=== PATIENT | male | born 1970 | race Caucasian/White ===

== ENCOUNTER → 2021-10-01 | Outpatient (CLI) | payer OTHER, SELFPAY ==
[2021-10-01 09:19] LABS: ALB/GLOB Ratio 0.9 RATIO (0.9-2.4); AST(SGOT) 30 U/L (15-37); Alanine Aminotransfer ALT/SGPT 50 U/L (16-61); Albumin, Serum 3.7 g/dL (3.2-5.0); Alkaline Phosphatase 55 U/L (45-117); Anion Gap 9 (5-15); BUN 14 mg/dL (7-18); BUN/Creat Ratio 16.4 RATIO (10-20); Calcium,Total 8.8 mg/dL (8.5-10.1); Chloride 103 mmol/L (98-107); Cholesterol 222 mg/dL (200); Creatinine, Serum 0.85 mg/dL (0.70-1.30); EST Glomerular Filtration Rate 101 mL/min (>60); Est Glom Filt Rate - Afr Amer 122 mL/min (>60); Globulin 4.2 g/dL (2.2-4.2); Glucose 102 mg/dL (74-106); High Density Lipoprotein 33 mg/dL; PSA,Total - Annual Screen 0.98 ng/mL (0.00-4.00); Potassium 3.6 mmol/L (3.5-5.1); Protein, Total 7.9 g/dL (6.4-8.2); Sodium Level 137 mmol/L (136-145); Triglycerides 644 mg/dL
== END | disposition home or self-care (01) ==
LOC: LAB 07:27
PROVIDERS: PCP Family Medicine; Referring Provider Family Medicine; Visit Provider Family Medicine
DX: Z12.5 Encounter for screening for malignant neoplasm of prostate (principal); Z13.1 Encounter for screening for diabetes mellitus; E78.1 Pure hyperglyceridemia
CPT/HCPCS: 36415; 80053; 80061; 84153; G0103

== ENCOUNTER → 2021-11-05 | Outpatient (CLI) | payer OTHER, SELFPAY ==
[2021-11-05 07:57] LABS: Cholesterol 203 mg/dL (200); High Density Lipoprotein 28 mg/dL; Triglycerides 607 mg/dL
[2021-11-05 09:26] LABS: HIV - WCH Non-Reactive (Nonreactive); Hepatitis C Antibody Non-Reactive (Nonreactive)
== END | disposition home or self-care (01) ==
LOC: LAB 07:03
PROVIDERS: PCP Family Medicine; Referring Provider Family Medicine; Visit Provider Family Medicine
DX: Z11.59 Encounter for screening for other viral diseases (principal); Z11.4 Encounter for screening for human immunodeficiency virus [HIV]; E78.2 Mixed hyperlipidemia
CPT/HCPCS: 36415; 80061; 86703; 86803

== ENCOUNTER → 2022-04-30 | Outpatient (CLI) | payer OTHER, SELFPAY ==
[2022-04-30 08:16] LABS: ALB/GLOB Ratio 1.1 RATIO (0.9-2.4); AST(SGOT) 21 U/L (15-37); Alanine Aminotransfer ALT/SGPT 41 U/L (16-61); Alkaline Phosphatase 46 U/L (45-117); Anion Gap 5 (5-15); BUN 15 mg/dL (7-18); BUN/Creat Ratio 14.9 RATIO (10-20); Calcium,Total 9.1 mg/dL (8.5-10.1); Chloride 109 mmol/L (98-107); Cholesterol 152 mg/dL (200); Creatinine, Serum 1.01 mg/dL (0.70-1.30); EST Glomerular Filtration Rate 83 mL/min (>60); Est Glom Filt Rate - Afr Amer 100 mL/min (>60); Globulin 3.6 g/dL (2.2-4.2); Glucose 99 mg/dL (74-106); High Density Lipoprotein 35 mg/dL; Potassium 3.6 mmol/L (3.5-5.1); Protein, Total 7.6 g/dL (6.4-8.2); Sodium Level 140 mmol/L (136-145); Triglycerides 146 mg/dL; Very Low Density Lipoprotein 29 mg/dL (5-40)
== END | disposition home or self-care (01) ==
LOC: LAB 06:55
PROVIDERS: PCP Family Medicine; Referring Provider Family Medicine; Visit Provider Family Medicine
DX: I10 Essential (primary) hypertension (principal); E78.2 Mixed hyperlipidemia
CPT/HCPCS: 36415; 80053; 80061

== ENCOUNTER → 2022-10-29 | Outpatient (CLI) | payer OTHER, SELFPAY ==
[2022-10-29 07:56] LABS: Hematocrit 44.3 % (40-54); Mean Corp Hgb Conc 33.9 g/dL (32-36); Mean Corpuscular Hgb 30.3 pg (27.0-32.0); Mean Corpuscular Volume 89.5 fL (80-94); Mean Platelet Vol. 9.9 fl (6.2-12.0); Platelet Count 209 K/mm3 (150-450); RBC Distribution Width CV 12.8 % (11.6-14.6); RBC Distribution Width SD 41.7 fl (35.1-43.9); Red Blood Count 4.95 M/mm3 (4.6-6.2); White Blood Count 5.2 K/mm3 (4.4-11.0)
[2022-10-29 08:25] LABS: ALB/GLOB Ratio 1.1 RATIO (0.9-2.4); AST(SGOT) 22 U/L (15-37); Alanine Aminotransfer ALT/SGPT 39 U/L (16-61); Alkaline Phosphatase 45 U/L (45-117); Anion Gap 6 (5-15); BUN 14 mg/dL (7-18); BUN/Creat Ratio 13.5 RATIO (10-20); Calcium,Total 8.9 mg/dL (8.5-10.1); Chloride 106 mmol/L (98-107); Cholesterol 168 mg/dL (200); Creatinine, Serum 1.04 mg/dL (0.70-1.30); EST Glomerular Filtration Rate 80 mL/min (>60); Est Glom Filt Rate - Afr Amer 97 mL/min (>60); Globulin 3.7 g/dL (2.2-4.2); Glucose 97 mg/dL (74-106); High Density Lipoprotein 31 mg/dL; PSA,Total - Annual Screen 1.29 ng/mL (0.00-4.00); Potassium 3.5 mmol/L (3.5-5.1); Protein, Total 7.7 g/dL (6.4-8.2); Sodium Level 136 mmol/L (136-145); Triglycerides 349 mg/dL; Very Low Density Lipoprotein 70 mg/dL (5-40)
== END | disposition home or self-care (01) ==
PROVIDERS: PCP Family Medicine; Referring Provider Family Medicine; Visit Provider Family Medicine
DX: Z13.1 Encounter for screening for diabetes mellitus (principal); Z13.0 Encounter for screening for diseases of the blood and blood-forming organs and certain disorders involving the immune mechanism; Z12.5 Encounter for screening for malignant neoplasm of prostate; E78.2 Mixed hyperlipidemia
CPT/HCPCS: 36415; 80053; 80061; 84153; 85027; G0103

== ENCOUNTER → 2023-04-24 | Outpatient (CLI) | payer OTHER, SELFPAY ==
--- OUTSIDE RECORDS SUMMARY | 2023-04-24 07:08 | XMS RPT_ITS | CCD ---
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 0 Active fenofibrate 145 mg oral tablet (3 sources) Peroxisome Proliferator Receptor alpha Agonist Start: 06-24-2022 End: 10-29-2022 take 1 tablet by mouth once daily fenofibrate (Tricor) 145 MG tablet Take 1 tablet (145 mg) by mouth daily. 90 tablet 1 10/30/2022 Active garlic preparation 100 mg oral tablet (2 sources) Non-Standardized Food Allergenic Extract take 1 tablet by mouth once daily Garlic 100 MG tablet Take 1 tablet by mouth daily. 0 Active Multiple Vitamin (MULTIVITAMIN ADULT PO) (2 sources) take 1 tablet by mouth once daily Multiple Vitamin (MULTIVITAMIN ADULT PO) Take 1 tablet by mouth daily. 0 Active Problems Active Problems Problem Classification Problem Date Documented Da te Episodic/Chronic Disorders of lipid metabolism (6 sources) Mixed hyperlipidemia; Translations: [Mixed hyperlipidemia] Onset: 10-04-2021 10-30-2022 Chronic Essential hypertension (5 sources) Essential hypertension; Translations: [Essential (primary) hypertension] Onset: 11-07-2021 10-30-2022 Chronic Other nutritional; endocrine; and metabolic disorders (3 sources) Severe obesity; Translations: [Morbid (severe) obesity due to excess calories] Onset: 10-04-2021 10-30-2022 Chronic Other nutritional; endocrine; and metabolic disorders (2 sources) Morbid (severe) obesity due to excess calories; Translations: [Morbid (severe) obesity due to excess calories (HCC)] Onset: 01-19-2022 Chronic Residual codes; unclassified (3 sources) Obstructive sleep apnea syndrome; Translations: [Obstructive sleep apnea (adult) (pediatric)] Onset: 10-04-2021 10-30-2022 Chronic Residual codes; unclassified (2 sources) Obstructive sleep apnea (adult) (pediatric); Translations: [Obstructive sleep apnea (adult) (pediatric)] Onset: 01-19-2022 Chronic Residual codes; unclassified (2 sources) Dependence on other enabling machines and devices; Translations: [Dependence on other enabling machines and devices] Onset: 01-19-2022 Chronic Unclassified (2 sources) Blood Pressure Check; Translations: [Blood Pressure Check] Onset: 11-07-2022 Past or Other Problems Problem Classification Problem Date Documented Da te Episodic/Chronic Other male genital disorders (2 sources) Swelling of scrotum ; Translations: [Other specified disorders of the male genital organs] Onset: 08-19-2017 01-19-2022 Episodic Results Test Name Value Interpretation Reference Range Facil ity Vital Signs Date Time Vital Sign Value Performing Clinician Alex freeman 10-30-2022 08:49-0400 Diastolic blood pressure 94 mm[Hg] Roman Bone MD Work Phone: [employer] 10-30-2022 08:49-0400 Heart rate 69 /min Roman Bone MD Work Phone: [employer] 10-30-2022 08:49-0400 Systolic blood pressure 158 mm[Hg] Roman Bone MD Work Phone: [employer] 10-30-2022 08:22-0400 Body height 167.9 cm Roman Bone MD Work Phone: [employer] 10-30-2022 08:22-0400 Body mass index (BMI) [Ratio] 36.95 kg/m2 Roman Bone MD Work Phone: [facility] 10-30-2022 08:22-0400 Body weight 104.15 kg Roman Bone MD Work Phone: [facility] 10-30-2022 08:22-0400 SaO2% (BldA) [Mass fraction] 96 % Roman Bone MD Work Phone: [facility] Encounters Encounter Date Encounter Type Care Provider Facility Start: 04-21-2023 Telephone encounter Roman Teran MD Work Phone: [facility] Procedures Date Procedure Procedure Detail Performing Clinician Start: 10-31-2022 Lipid 1996 panel - S hiren or Plasma Roman Bone MD Work Phone: Start: 10-29-2022 Adult depression screening assessment Roman Bone MD Work Phone: Start: 04-30-2022 Lipid 1996 panel - S hiren or Plasma Roman Bone MD Work Phone: Plan of Treatment Date Care Activity Detail Author Start: 02-05-2032 Screening for malignant neoplasm of colon [facility] Start: 2031 RSV Immunization aged 60 or older (1 - 1-dose 60+ series) RSV Immunization aged 60 or older (1 - 1-dose 60+ series) [facility] Start: 11-01-2027 Lipid panel Lipid Panel [facility] Start: 04-30-2027 Lipid panel Lipid Panel [facility] Start: 10-30-2023 Depression Screening Depression Screening [facility] Start: 04-28-2023 End: 04-28-2023 Patient encounter procedure 04/28/2023 7:00 AM EST Office Visit [facility] [address] [place], [place] [id number] Roman Bone MD [address] [place] [address] [facility] Start: 04-21-2023 End: 04-21-2024 Alanine aminotransferase [Enzymatic activity/volume] in Serum or Plasma ALT Lab Routine Mixed hyperlipidemia Expected: 04/21/2023 (Approximate), Expires: 04/21/2024 [facility] Work Phone: Immunizations Immunization Date Immunization Notes Care Provider Cristian archibald 01-16-2012 diphtheria and tetan us toxoids, adsorbed for pediatric use Roman Bone MD Work Phone: [facility] Payers Date Payer Category Payer Private Health Insurance [employer] ETNA PPO [id number] 2022-Present [address] [place] [address] Commercial [id number] 2022 Private Health Insurance [id number] Social History Date Type Detail Facility Tobacco smoking status NHIS Never smoked tobacco [facility] Start: 10-30-2022 Alcohol intake Current drinke r of alcohol (finding) [facility] Start: 10-29-2022 End: 10-30-2022 History of Social function [facility] Start: 10-29-2022 End: 10-30-2022 Alcohol Use Disorder Identification Test - Consumption [AUDIT-C] [facility] How often to you hav e a drink containing alcohol? 2-4 times a month [facility] How many standard dr inks containing alcohol do you have on a typical day? 5 or 6 [facility] How often do you hav e 6 or more drinks on 1 occasion? Less than monthly [facility] How hard is it for y ou to pay for the very basics like food, housing, medical care, and heating Not hard at all [facility] (I/We) worried tomeka er (my/our) food would run out before (I/we) got money to buy more. Never true [facility] In the past 12 month s, was there a time when you were not able to pay the mortgage or rent on time? No [facility] Start: 10-29-2022 Alcohol Comment 5-6 drinks on a day on the weekend [facility] Start: 1970 Sex Assigned At Not on file [facility] Start: 10-20-2022 End: 10-30-2022 Exposure to SARS-CoV-2 (event) Not sure [facility] Clinical Notes 10-30-2022 to 04-21-2023 Telephone Encounter - Tiara Celeste MA - 04/21/2023 12:48 PM ESTTelephone Encounter - Tiara Celeste MA - 04/21/2023 12:48 PM ESTTelephone Encounter - Roman Bone MD - 04/21/2023 12:41 PM EST Note Date & Type Note Facility 04-21-2023 Telephone encounter Note Form atting of this note might be different from the original. Notified. [facility] 04-21-2023 Miscellaneous Notes Formattin g of this note might be different from the original. Notified. His cholesterol does need rechecked his triglycerides continue to be high, he can have that done prior to his visit if he would like. Order entered Name of caller: Bhavesh Contact phone number: [phone] Relationship to Patient: patient Provider: Dr Bone Practice: [facility] Chief Complaint/Reason for Call: Patient states he has an upcoming appointment on 04/28/23 and would like to know if he should have any lab work done before the appointment. Patient is requesting a callback regarding this matter. Please advise, thank you Best time of day caller can be reached: any Patient advised that office/PCP has 24-48 business hours to return their call: Yes documented in this encounter [facility] 04-21-2023 Telephone encounter Note Form atting of this note might be different from the original. His cholesterol does need rechecked his triglycerides continue to be high, he can have that done prior to his visit if he would like. Order entered [facility] 04-21-2023 Telephone encounter Note Form atting of this note might be different from the original. Name of caller: Bhavesh Contact phone number: [phone] Relationship to Patient: patient Provider: Dr Bone Practice: [facility] Chief Complaint/Reason for Call: Patient states he has an upcoming appointment on 04/28/23 and would like to know if he should have any lab work done before the appointment. Patient is requesting a callback regarding this matter. Please advise, thank you Best time of day caller can be reached: any Patient advised that office/PCP has 24-48 business hours to return their call: Yes [employer] 10-30-2022 Evaluation + Plan note Associ ated Problem(s): Mixed hyperlipidemia Cholesterol is controlled, triglycerides are elevated discussed reducing his omega-3 fish oil to at least 4 g a day continue fenofibrate 145 mg daily [facility] 10-30-2022 Miscellaneous Notes Associate d Problem(s): Mixed hyperlipidemia Cholesterol is controlled, triglycerides are elevated discussed reducing his omega-3 fish oil to at least 4 g a day continue fenofibrate 145 mg daily Associated Problem(s): Severe obesity (BMI 35.0-39.9) with comorbidity (HCC) Weight is increased, discussed diet and exercise for weight loss. Associated Problem(s): Primary hypertension Blood pressure was initially elevated, recheck was still high we will have him follow-up in 1 week for blood pressure check may need to start medications. Associated Problem(s): EDGAR on CPAP Stable, continue CPAP at current settings documented in this encounter [facility] 10-30-2022 Evaluation + Plan note Associ ated Problem(s): Severe obesity (BMI 35.0-39.9) with comorbidity (HCC) Weight is increased, discussed diet and exercise for weight loss. [facility] 10-30-2022 Evaluation + Plan note Associ ated Problem(s): Primary hypertension Blood pressure was initially elevated, recheck was still high we will have him follow-up in 1 week for blood pressure check may need to start medications. [facility] 10-30-2022 Evaluation + Plan note Associ ated Problem(s): EDGAR on CPAP Stable, continue CPAP at current settings [facility] 10-30-2022 History of Presen t illness Narrative Health Maintenance/pend orders Allergies Meds-pharmacy Medical hx Surgical hx Family hx Tobacco use E-Cigarette/vaping use Alcohol use Drug use Sexual activity PHQ2/9 Social Determinants Pend any medication refills needed-need fenofibrate refilled All of the above have been reviewed/completed Patient verified by last name and date of . Images from the original note were not included. 10/30/2022 Bhavesh Galindo (: 1970) is a 52 y.o. male , Established patient, here for evaluation of the following chief complaint(s): Annual Exam, Blood Work, and Health Maintenance (DM screening-agreed but already had labs done at [facility], had Dr. Bone put in orders ahead of visit/IZABELLAID vaccine-none/TDAP-declines/Shingrix- declines/Hep B vaccine-declines) ASSESSMENT/PLAN: 1. Annual physical exam 2. EDGAR on CPAP Assessment & Plan: Stable, continue CPAP at current settings 3. Primary hypertension Assessment & Plan: Blood pressure was initially elevated, recheck was still high we will have him follow-up in 1 week for blood pressure check may need to start medications. 4. Severe obesity (BMI 35.0-39.9) with comorbidity (HCC) Assessment & Plan: Weight is increased, discussed diet and exercise for weight loss. 5. Mixed hyperlipidemia Assessment & Plan: Cholesterol is controlled, triglycerides are elevated discussed reducing his omega-3 fish oil to at least 4 g a day continue fenofibrate 145 mg daily Follow up in about 6 months (around 05/02/2023). SUBJECTIVE/OBJECTIVE: EMIL Swift comes in today for his annual exam, he is also here for follow-up on his EDGAR, hypertension obesity and hyperlipidemia. Blood pressure is slightly elevated today we will recheck that prior to discharge. He says he wears his CPAP every night for approximately 7 hours. He does feel like he is continuing to get benefit. Review of Systems Constitutional: Negative for activity change, appetite change, chills, fever and unexpected weight change. HENT: Negative for ear pain and sore throat. Respiratory: Negative for shortness of breath. Cardiovascular: Negative for chest pain and palpitations. Gastrointestinal: Negative for abdominal pain, blood in stool, constipation and diarrhea. Genitourinary: Negative for dysuria, frequency, hematuria and urgency. Musculoskeletal: Negative for arthralgias and back pain. Skin: Negative. Neurological: Negative for weakness and numbness. Psychiatric/Behavioral: Negative for dysphoric mood. The patient is not nervous/anxious. Vitals: 10/30/22 0822 10/30/22 0849 BP: (!) 159/84 (!) 158/94 Pulse: 74 69 SpO2: 96% Weight: 229 lb 9.6 oz (104 kg) Height: 5' 6.1 (1.679 m) Physical Exam Vitals and nursing note reviewed. Constitutional: General: He is not in acute distress. Appearance: Normal appearance. He is obese. HENT: Right Ear: Tympanic membrane, ear canal and external ear normal. Left Ear: Tympanic membrane, ear canal and external ear normal. Mouth/Throat: Mouth: Mucous membranes are moist. Pharynx: Oropharynx is clear. Eyes: Extraocular Movements: Extraocular movements intact. Pupils: Pupils are equal, round, and reactive to light. Neck: Vascular: No carotid bruit. Cardiovascular: Rate and Rhythm: Normal rate and regular rhythm. Heart sounds: Normal heart sounds. No murmur heard. Pulmonary: Effort: Pulmonary effort is normal. Breath sounds: Normal breath sounds. Abdominal: General: Bowel sounds are normal. Palpations: Abdomen is soft. Tenderness: There is no abdominal tenderness. Musculoskeletal: General: Normal range of motion. Cervical back: Neck supple. Lymphadenopathy: Cervical: No cervical adenopathy. Skin: General: Skin is warm and dry. Neurological: General: No focal deficit present. Mental Status: He is alert and oriented to person, place, and time. Psychiatric: Mood and Affect: Mood normal. An electronic signature was used to authenticate this note. Roman Bone MD 10/30/2022 11:31 AM documented in this encounter [facility] Mixed hyperlipidemia- Primary documented in this encounter [facility] Summary Purpose Family History No Family History Records Found Advance Directives No Advanced Directives Records Found Additional Source Comments Reason for Visit (unrecogniz ed section and content) Reason Onset Date Comments Request For Order(s) 04/21/2023 Care Teams (unrecognized sec tion and content) Coring Machine Operator Relationship Specialty Start Date End Date Roman Bone MD [address] [place] [address], [address] [place], [place] [id number] PCP - General 10/04/21 (unrecognized sect ion and content) No Status Records Found INFORMATION SOURCE (unrecogn ized section and content) FOR RECORDS PERTAINING TO PATIENTS WHO ARE OR HAVE BEEN ENROLLED IN A CHEMICAL DEPENDENCY/SUBSTANCEABUSE PROGRAM, SOME INFORMATION MAY BE OMITTED. This clinical summary was aggregated from multiple sources. Caution should be exercised in using it in the provision of clinical care. This summary normalizes information from multiple sources, and as a consequence, information in this document may materially change the coding, format and clinical context of patient data. In addition, data may be omitted in some cases. CLINICAL DECISIONS SHOULD BE BASED ON THE PRIMARY CLINICAL RECORDS. [employer] [facility]. provides no warranty or guarantee of the accuracy or completeness of information in this document.
[2023-04-24 09:21] LABS: AST(SGOT) 22 U/L (15-37); Alanine Aminotransfer ALT/SGPT 38 U/L (16-61); Cholesterol 182 mg/dL (200); High Density Lipoprotein 32 mg/dL; Triglycerides 125 mg/dL; Very Low Density Lipoprotein 25 mg/dL (5-40)
== END | disposition home or self-care (01) ==
LOC: LAB 07:06
PROVIDERS: PCP Family Medicine; Visit Provider Family Medicine
DX: E78.2 Mixed hyperlipidemia (principal)
CPT/HCPCS: 36415; 80061; 84450; 84460

== ENCOUNTER → 2023-11-13 | Outpatient (CLI) | payer OTHER, SELFPAY ==
[2023-11-13 07:40] LABS: Cholesterol 166 mg/dL (200); High Density Lipoprotein 34 mg/dL; Triglycerides 121 mg/dL; Very Low Density Lipoprotein 24 mg/dL (5-40)
== END | disposition home or self-care (01) ==
LOC: LAB 06:54
PROVIDERS: PCP Family Medicine; Referring Provider Family Medicine; Visit Provider Family Medicine
DX: E78.2 Mixed hyperlipidemia (principal)
CPT/HCPCS: 36415; 80061

== ENCOUNTER → 2023-11-21 | Outpatient (CLI) | payer OTHER, SELFPAY ==
[2023-11-21 08:02] LABS: ALB/GLOB Ratio 1.1 RATIO (0.9-2.4); AST(SGOT) 19 U/L (15-37); Alanine Aminotransfer ALT/SGPT 31 U/L (16-61); Alkaline Phosphatase 45 U/L (45-117); Anion Gap 6 (5-15); BUN 14 mg/dL (7-18); BUN/Creat Ratio 13.9 RATIO (10-20); Calcium,Total 8.9 mg/dL (8.5-10.1); Chloride 107 mmol/L (98-107); Creatinine, Serum 1.01 mg/dL (0.70-1.30); EST Glomerular Filtration Rate 82 mL/min (>60); Est Glom Filt Rate - Afr Amer 100 mL/min (>60); Globulin 3.7 g/dL (2.2-4.2); Glucose 98 mg/dL (74-106); PSA,Total- Diagnostic 1.32 ng/mL (0.0-4.0); Potassium 3.7 mmol/L (3.5-5.1); Protein, Total 7.7 g/dL (6.4-8.2); Sodium Level 139 mmol/L (136-145)
== END | disposition home or self-care (01) ==
LOC: LAB 06:54
PROVIDERS: PCP Family Medicine; Referring Provider Family Medicine; Visit Provider Family Medicine
DX: I10 Essential (primary) hypertension (principal); Z12.5 Encounter for screening for malignant neoplasm of prostate
CPT/HCPCS: 36415; 80053; 84153

== ENCOUNTER → 2024-05-26 | Outpatient (CLI) | payer OTHER, SELFPAY ==
[2024-05-26 08:33] LABS: ALB/GLOB Ratio 1.1 RATIO (0.9-2.4); AST(SGOT) 28 U/L (15-37); Alanine Aminotransfer ALT/SGPT 39 U/L (16-61); Alkaline Phosphatase 48 U/L (45-117); Anion Gap 5 (5-15); BUN 17 mg/dL (7-18); Calcium,Total 9.1 mg/dL (8.5-10.1); Chloride 106 mmol/L (98-107); Cholesterol 174 mg/dL (200); Creatinine, Serum 0.95 mg/dL (0.70-1.30); EST Glomerular Filtration Rate 88 mL/min (>60); Est Glom Filt Rate - Afr Amer 107 mL/min (>60); Globulin 3.8 g/dL (2.2-4.2); Glucose 100 mg/dL (74-106); High Density Lipoprotein 38 mg/dL; PSA,Total - Annual Screen 0.97 ng/mL (0.00-4.00); Potassium 3.8 mmol/L (3.5-5.1); Protein, Total 7.8 g/dL (6.4-8.2); Sodium Level 138 mmol/L (136-145); Triglycerides 176 mg/dL; Very Low Density Lipoprotein 35 mg/dL (5-40)
== END | disposition home or self-care (01) ==
LOC: LAB 06:50
PROVIDERS: PCP Family Medicine; Referring Provider Nurse Practitioner Family; Visit Provider Nurse Practitioner Family
DX: E78.2 Mixed hyperlipidemia (principal); I10 Essential (primary) hypertension; Z12.5 Encounter for screening for malignant neoplasm of prostate
CPT/HCPCS: 36415; 80053; 80061; 84153; G0103

== ENCOUNTER → 2024-11-18 | Outpatient (CLI) | payer OTHER, SELFPAY ==
--- OUTSIDE RECORDS SUMMARY | 2024-11-18 06:48 | XMS RPT_ITS | CCD ---
Author Organization [facility] Care Team Providers Care Motorcycle Maker Name Role Phone Jeferson Worrell MD Primary Care Provider Jeferson Worrell Referring Unavailable Jeferson Worrell Attending Unavailable Jeferson Worrell Primary Care Unavailable Jeferson Worrell Primary Care Unavailable Jeferson Worrell Referring Unavailable Jeferson Worrell Attending Unavailable Jeferson Worrell Primary Care Unavailable Bridenthal, Marleen Referring Unavailable Bridenthal Marleen Attending Unavailable JEFERSON WORRELL Attending Unavailable JEFERSON WORRELL Primary Care Unavailable JEFERSON WORRELL Primary Care Unavailable JEFERSON WORRELL Attending Unavailable JEFERSON WORRELL Primary Care Unavailable Medications Current Medications Medication Drug Class(es) Dates Sig (Normalized) Sig (Original) docosahexaenoic acid 120 mg / eicosapentaenoic acid 180 mg oral capsule (15 sources) take 1 capsule by mouth once daily omega-3 (Fish Oil) 1000 MG capsule Take 1,000 mg by mouth daily. Active fenofibrate 145 mg oral tablet (19 sources) Peroxisome Proliferator Receptor alpha Agonist Start: 03-19-2022 End: 11-15-2024 take 1 tablet by mouth once daily fenofibrate (Tricor) 145 MG tablet Take 1 tablet (145 mg) by mouth daily. 90 tablet 1 11/15/2024 Active garlic preparation 100 mg oral tablet (15 sources) Non-Standardized Food Allergenic Extract take 1 tablet by mouth once daily Garlic 100 MG tablet Take 1 tablet by mouth daily. Active take 1 tablet by mouth once beckie y Garlic 100 MG tablet Take 1 tablet by mouth daily. 0 Active Multiple Vitamin (MULTIVITAM IN ADULT PO) (15 sources) take 1 tablet by eulalia th once daily Multiple Vitamin (MULTIVITAMIN ADULT PO) Take 1 tablet by mouth daily. Active take 1 tablet by mouth once beckie y Multiple Vitamin (MULTIVITAMIN ADULT PO) Take 1 tablet by mouth daily. 0 Active rosuvastatin calcium 5 mg oral tablet (4 sources) HMG-CoA Reductase Inhibitor Start: 06-01-2024 End: 11-15-2024 take 1 tablet by mouth once daily rosuvastatin (Crestor) 5 MG tablet Take 1 tablet (5 mg) by mouth daily. 90 tablet 1 11/15/2024 Active Completed/Discontinued Medications Medication Drug Class(es) Dates Sig (Normalized) Sig (Original) icosapent ethyl 1000 mg oral capsule (1 source) Start: 10-12-2021 End: 05-08-2022 Icosapent Ethyl (Vascepa) 1 g capsule Take 2 capsules by mouth 2 times daily. 0 10/12/2021 05/08/2022 Discontinued (Med list cleanup) Problems Active Problems Problem Classification Problem Date Documented Da te Episodic/Chronic Disorders of lipid metabolism (20 sources) Mixed hyperlipidemia; Translations: [Mixed hyperlipidemia] Onset: 10-04-2021 10-30-2022 Chronic Essential hypertension (20 sources) Essential hypertension; Translations: [Essential (primary) hypertension] Onset: 11-07-2021 10-30-2022 Chronic Other nutritional; endocrine; and metabolic disorders (20 sources) Severe obesity; Translations: [Morbid (severe) obesity due to excess calories] Onset: 10-04-2021 10-30-2022 Chronic Other nutritional; endocrine; and metabolic disorders (2 sources) Morbid (severe) obesity due to excess calories; Translations: [Morbid (severe) obesity due to excess calories (HCC)] Onset: 01-19-2022 Chronic Residual codes; unclassified (20 sources) Obstructive sleep apnea syndrome; Translations: [Obstructive sleep apnea (adult) (pediatric)] Onset: 10-04-2021 10-30-2022 Chronic Residual codes; unclassified (2 sources) Obstructive sleep apnea (adult) (pediatric); Translations: [Obstructive sleep apnea (adult) (pediatric)] Onset: 01-19-2022 Chronic Residual codes; unclassified (1 source) Influenza vaccination declined; Translations: [Immunization not carried out because of patient refusal] 05-28-2024 Episodic Unclassified (2 sources) Blood Pressure Check; Translations: [Blood Pressure Check] Onset: 06-08-2024 Past or Other Problems Problem Classification Problem Date Documented Da te Episodic/Chronic Other male genital disorders (15 sources) Swelling of scrotum ; Translations: [Other specified disorders of the male genital organs] Onset: 08-19-2017 Resolved: 11-18-2023 01-19-2022 Episodic Other screening for suspected conditions (not mental disorders or infectious disease) (6 sources) Patient encounter status; Translations: [Encounter for screening for diabetes mellitus] Onset: 11-18-2023 11-18-2023 Episodic Residual codes; unclassified (2 sources) Immunization not carried out because of patient refusal; Translations: [Immunization not carried out because of patient refusal] Onset: 06-01-2024 Episodic Results Test Name Value Interpretation Reference Range Facil ity 36on 11-15-2024 36 Printed orders for patient, called patient to let him know they are ready to product picker [place] [id number] Yes the active orders [place] [id number] Rx sent. Follow up a s scheduled. Normal [place] [id number] Theres active orders in his chart, is that what you would like him to complete? [place] [id number] Ordering provider: Doreen Worrell Date of last office visit: 06/01/24 Date of next office visit: 11/24/24 Updated/Validated preferred pharmacy: Yes Patient instructed to contact the pharmacy prior to picking up the medication: Yes (1) Medication name: fenofibrate (Tricor) Medication dosage: 145mg Monthly quantity needed: 30 How many day supply requestin days Medication route: oral (PO) Medication administration time(s): daily If taking medication PRN, reason for taking medication: N/A If this is a controlled substance do you receive this or any other controlled medication from any other doctor or facility: N/A Date of last refill (see medication tab): 06/29/24 2ion name: rosuvastatin (Crestor) Medication dosage: 5mg Monthly quantity needed: 30 How many day supply requestin days Medication route: oral (PO) Medication administration time(s): daily If taking medication PRN, reason for taking medication: N/A If this is a controlled substance do you receive this or any other controlled medication from any other doctor or facility: N/A Date of last refill (see medication tab): 06/01/24 [place] [id number] Name of caller: Bhavesh Contact phone number: [phone] Relationship to Patient: patient Provider: Dr Worrell Practice: [facility] Chief Complaint/Reason for Call: Patient is requesting lab orders so that he can get them done prior to his visit. He would like to product picker hard copies. Please call when ready. Best time of day caller can be reached: any Patient advised that office/PCP has 24-48 business hours to return their call: Yes [facility] 36on 06-29-2024 36 Medication name: fenofibrate (Tricor) 145 MG tablet Medication dosage: 145 mg (Miligrams Monthly quantity needed: 90 How many day supply requestin Medication route: oral (PO) Medication administration time(s): daily If taking medication PRN, reason for taking medication: N/A If this is a controlled substance do you receive this or any other controlled medication from any other doctor or facility: N/A Ordering provider: Jeferson Worrell MD Date of last office visit: 06/01/24 Date of next office visit: 11/24/24 Date of last refill: (see medication tab): 11/18/23 Updated/Validated preferred pharmacy: Yes [facility] [address] [facility] [address] [facility] [address] Patient instructed to contact the pharmacy prior to picking up the medication: Yes [place] [id number] 06-08-2024 36 Notified, no further questions [facility] 36 Blood pressure is okay continue low-sodium diet. Normal [facility] 36 Bhavesh came in today for a blood pressure check and his readings were 146/74 pulse 76 and 122/74 pulse 73. Please advise, thank you! Patient arrived for nurse visit today and was verified by name and . Supervising provider for clinic visit Dr. Worrell is currently not taking any anti- hypertensive medications Shortness of breath no Medication compliance yes Medication Reconciliation yes B/P Reading taken automatic Home Monitoring yes Patient advised if follow up is needed, outreach will occur in 48 hours [facility] Progress Noteon 06-08-2024 Progress Note [address] [place] [address] [address] Patient arrived for nurse visit today and was verified by name and . Supervising provider for clinic visit Dr. Worrell is currently not taking any anti- hypertensive medications Shortness of breath no Medication compliance yes Medication Reconciliation yes B/P Reading taken automatic Home Monitoring yes Patient advised if follow up is needed, outreach will occur in 48 hours [facility] Office Visiton 06-01-2024 Follow-up visit [id number] Bhavesh Galindo 1970 M Date Provider Department Center 06/01/2024 [id number] WORRELL [facility] Family History Problem Relation Age of Onset Heart attack Father Cancer Father Comments: bladder Family Status - Relation Status Age at Father Mother Alive Level of Service:81023 ID OFFICE/OUTPATIENT ESTABLISHED MOD MDM 30 MIN Reason for Visit and Comments: Hyperlipidemia [182] Hypertension [732417] Sleep Apnea [348] Medication Check [5183782249] - 6 month Health Maintenance [872] - Pt refused- pcv 20 and flu vaccines Pt has not had any covid vaccines Normal [facility] Progress Noteon 06-01-2024 Progress Note Blood pressure was slightly elevated today recheck was still borderline high, follow-up in 1 week for blood pressure check currently on no medications. Very strict low-sodium diet less than 2 g a day. Normal [facility] Progress Note Uncontrolled, cholesterol total is good, bad continues to be borderline high and good is borderline low we will have him continue his fenofibrate at current dose and will add low-dose rosuvastatin 5 mg and have him get repeat lab work in 4 weeks. Normal [facility] Progress Note Stable, encourage weight loss with diet and exercise Normal [facility] Progress Note Stable, continue CPA P at current settings. Normal [facility] Progress Note 06/01/2024 Bhavesh Galindo (: 1970) is a 54 y.o. male , Established patient, here for evaluation of the following chief complaint(s): Hyperlipidemia, Hypertension, Sleep Apnea, Medication Check (6 month), and Health Maintenance (Pt refused- pcv 20 and flu vaccines/Pt has not had any covid vaccines) ASSESSMENT/PLAN: 1. Mixed hyperlipidemia Assessment & Plan: Uncontrolled, cholesterol total is good, bad continues to be borderline high and good is borderline low we will have him continue his fenofibrate at current dose and will add low-dose rosuvastatin 5 mg and have him get repeat lab work in 4 weeks. Orders: - ALT - AST - Lipid panel 2. Primary hypertension Assessment & Plan: Blood pressure was slightly elevated today recheck was still borderline high, follow-up in 1 week for blood pressure check currently on no medications. Very strict low-sodium diet less than 2 g a day. 3. Severe obesity (BMI 35.0-39.9) with comorbidity (HCC) Assessment & Plan: Stable, encourage weight loss with diet and exercise 4. EDGAR on CPAP Assessment & Plan: Stable, continue CPAP at current settings. 5. Influenza vaccine refused Follow up in about 6 months (around 11/29/2024) for annual. SUBJECTIVE/OBJECTIVE: EMIL Aguilar comes in today for 6-month follow-up on his hyperlipidemia, we reviewed his labs that were done through [facility] and is cholesterol continues to be borderline so we will need to add something to that. His blood pressure is a little elevated today we will recheck prior to discharge, he says he wears his CPAP every night for approximately 6 hours. And his weight remains pretty stable. Review of Systems Constitutional: Negative for activity [...] Negative. Neurological: Negative for weakness and numbness. Psychiatric/Behaviora l: Negative for dysphoric mood. The patient is not nervous/anxious. Vitals: 06/01/24 0654 06/01/24 0718 BP: (!) 149/72 (!) 144/69 Pulse: 74 73 SpO2: 95% Weight: 226 lb (103 kg) Height: 5' 6.1 (1.679 m) Physical [...] clear. Eyes: Extraocular Movements: Extraocular movements intact. Conjunctiva/sclera: Conjunctivae normal. Pupils: Pupils are equal, round, and reactive to light. Neck: Thyroid: No thyromegaly. Vascular: No carotid bruit. Cardiovascular: Rate and [...] signature was used to authenticate this note. Jeferson Worrell MD 06/01/2024 7:31 AM Normal [facility] Progress Note Patient verified by last name and date of . Normal [facility] Comprehensive Metabolic Prof ilon 05-26-2024 Albumin [Mass/Vol] 4.0 g/dL Normal 3.2-5.0 [facility] Comment on above: Performed By: #### L 500.4100, L501.9910, L500.4050 #### [facility] [address] [place], [address] Albumin/Globulin [Mass ratio] 1.1 {ratio} Normal 0.9-2.4 [facility] Comment on above: Performed By: #### L 500.4100, L501.9910, L500.4050 #### [facility] [address] [place], [address] ALK P 48 U/L Normal 45-117 [facility] Comment on above: Performed By: #### L 500.4100, L501.9910, L500.4050 #### [facility] [address] [place], [address] ALT [Catalytic activity/Vol] 39 U/L Normal 16-61 [facility] Comment on above: Performed By: #### L 500.4100, L501.9910, L500.4050 #### [facility] [address] [place], [address] AST [Catalytic activity/Vol] 28 U/L Normal 15-37 [facility] Comment on above: Performed By: #### L 500.4100, L501.9910, L500.4050 #### [facility] [address] [place], [address] Bilirubin [Mass/Vol] 0.60 mg/dL Normal 0.20-1.00 [facility] Comment on above: Result Comment: For patients on eltrombopag therapy, use of Dimension [place] TBIL is not recommended. Performed By: #### L 500.4100, L501.9910, L500.4050 #### [facility] [address] [place], [address] BUN/CRE 18.0 RATIO Normal 10-20 [facility] Comment on above: Performed By: #### L 500.4100, L501.9910, L500.4050 #### [facility] [address] [place], [address] CA,Total 9.1 mg/dL Normal 8.5-10.1 [facility] Comment on above: Performed By: #### L 500.4100, L501.9910, L500.4050 #### [facility] [address] [place], [address] Chloride [Moles/Vol] 106 mmol/L Normal 98-107 [facility] Comment on above: Performed By: #### L 500.4100, L501.9910, L500.4050 #### [facility] [address] [place], [address] CO2 [Moles/Vol] 27.0 mmol/L Normal 21.0-32.0 [facility] Comment on above: Performed By: #### L 500.4100, L501.9910, L500.4050 #### [facility] [address] [place], [address] Creatinine [Mass/Vol] 0.95 mg/dL Normal 0.70-1.30 [facility] Comment on above: Result Comment: The validity of the calculated GFR GFRAA in patients over 70 years has not been determined. Clinical correlation is essential. Performed By: #### L 500.4100, L501.9910, L500.4050 #### [facility] [address] [place], [address] EST GFR - AA 107 mL/min Normal >60 [facility] Comment on above: Result Comment: Afri can [place] GFR Calc Performed By: #### L 500.4100, L501.9910, L500.4050 #### [facility] [address] [place], [address] GAP 5 Normal 5-15 [facility] Comment on above: Performed By: #### L 500.4100, L501.9910, L500.4050 #### [facility] [address] [place], [address] GFR/1.73 sq M.predicted among non-blacks MDRD (S/P/Bld) [Vol rate/Area] 88 mL/min/{1.73_m2} Normal >60 [facility] Comment on above: Result Comment: Non- GFR Calc Performed By: #### L 500.4100, L501.9910, L500.4050 #### [facility] [address] [place], [address] Globulin (S) [Mass/Vol] 3.8 g/dL Normal 2.2-4.2 [facility] Comment on above: Performed By: #### L 500.4100, L501.9910, L500.4050 #### [facility] [address] [place], [address] Glucose [Mass/Vol] 100 mg/dL Normal 74-106 [facility] Comment on above: Result Comment: Fast ing Glucose result from 100 to 125 mg/dL suggests IMPAIRED HOMEOSTASIS per A.D.A. criteria. Performed By: #### L 500.4100, L501.9910, L500.4050 #### [facility] [address] [place], [address] Potassium [Moles/Vol] 3.8 mmol/L Normal 3.5-5.1 [facility] Comment on above: Performed By: #### L 500.4100, L501.9910, L500.4050 #### [facility] [address] [place], [address] Sodium [Moles/Vol] 138 mmol/L Normal 136-145 [facility] Comment on above: Performed By: #### L 500.4100, L501.9910, L500.4050 #### [facility] [address] [place], [address] T PROT 7.8 g/dL Normal 6.4-8.2 [facility] Comment on above: Performed By: #### L 500.4100, L501.9910, L500.4050 #### [facility] [address] [place], [address] Urea nitrogen [Mass/Vol] 17 mg/dL Normal 7-18 [facility] Comment on above: Performed By: #### L 500.4100, L501.9910, L500.4050 #### [facility] [address] [place], [address] Lipid Profileon 05-26-2024 Cholesterol [Mass/Vol] 174 mg/dL Normal 200 [facility] Comment on above: Result Comment: <200 mg/dL Desirable 200-240 mg/dL Borderline >240 mg/dL High Risk Performed By: #### L 500.4100, L501.9910, L500.4050 #### [facility] [address] [place], [address] Cholesterol in HDL [Mass/Vol] 38 mg/dL Low [facility] Comment on above: Result Comment: The drugs N-Acetylcysteine and Metamizole may falsely depress this assay. Reference Range HDL <40 mg/dL Low HDL Cholesterol HDL >or= 60 mg/dL High HDL Cholesterol Performed By: #### L 500.4100, L501.9910, L500.4050 #### [facility] [address] [place], [address] Cholesterol in LDL [Mass/Vol] 101 mg/dL Normal 0-130 [facility] Comment on above: Performed By: #### L 500.4100, L501.9910, L500.4050 #### [facility] [address] [place], [address] Cholesterol in VLDL [Mass/Vol] 35 mg/dL Normal 5-40 [facility] Comment on above: Performed By: #### L 500.4100, L501.9910, L500.4050 #### [facility] [address] [place], [address] Triglyceride [Mass/Vol] 176 mg/dL Normal [facility] Comment on above: Result Comment: The drugs N-Acetylcysteine and Metamizole may falsely depress this assay. Serum Triglycerides Reference Interval Normal <150 mg/dL Borderline high 150 - 199 mg/dL High 200 - 499 mg/dL Very High > or = 500 mg/dL Performed By: #### L 500.4100, L501.9910, L500.4050 #### [facility] [address] [place], [address] PSA,Total - Annual Screenon 05-26-2024 PSA,TOT SCREEN 0.97 ng/mL Normal 0.00-4.00 [facility] Comment on above: Result Comment: This test was performed using the TPSA assay method for the [employer] chemistry system. Values obtained with different assay methods cannot be used interchangably. When changing PSA assays in the course of monitoring a patient, additional sequential testing should be carried out to confirm baseline values. Performed By: #### L 500.4100, L501.9910, L500.4050 #### [facility] [address] [place], [address] 36on 05-24-2024 36 Notified, printed fo r product picker. [facility] 36 Name of caller: Bhavesh Contact phone number: [phone] Relationship to Patient: Patient Provider: Practice: [facility] Chief Complaint/Reason for Call: Patient called in regarding lab orders. Patient is requesting all the labs that he had done last time reordered. Patient would like to get lab work done prior to upcoming office visit. Please advise and call Patient when he can pickup labs. Best time of day caller can be reached: any Patient advised that office/PCP has 24-48 business hours to return their call: yes [facility] 36on 11-21-2023 36 Message released to patient as written. Called patient no answer no voicemail set up. If patient calls back please advise him, per Dr. Worrell: blood sugar and chemistry are normal and prostate is normal. MCM sent. Patient's further questions if applicable: no Were all questions from office addressed or relayed to the patient from encounter: Yes [facility] 36 Called patient no answer no voicemail set up. If patient calls back please advise him, per Dr. Worrell: blood sugar and chemistry are normal and prostate is normal. MCM sent. [facility] Comprehensive Metabolic Prof ilon 11-21-2023 Albumin [Mass/Vol] 4.0 g/dL Normal 3.2-5.0 [facility] Comment on above: Performed By: #### L 501.9940, L500.4050 #### [facility] [address] [place], [address] Albumin/Globulin [Mass ratio] 1.1 {ratio} Normal 0.9-2.4 [facility] Comment on above: Performed By: #### L 501.9940, L500.4050 #### [facility] [address] [place], [address] ALK P 45 U/L Normal 45-117 [facility] Comment on above: Performed By: #### L 501.9940, L500.4050 #### [facility] [address] [place], [address] ALT [Catalytic activity/Vol] 31 U/L Normal 16-61 [facility] Comment on above: Performed By: #### L 501.9940, L500.4050 #### [facility] [address] [place], [address] AST [Catalytic activity/Vol] 19 U/L Normal 15-37 [facility] Comment on above: Performed By: #### L 501.9940, L500.4050 #### [facility] [address] [place], [address] Bilirubin [Mass/Vol] 0.50 mg/dL Normal 0.20-1.00 [facility] Comment on above: Result Comment: For patients on eltrombopag therapy, use of Dimension [place] TBIL is not recommended. Performed By: #### L 501.9940, L500.4050 #### [facility] [address] [place], [address] BUN/CRE 13.9 RATIO Normal 10-20 [facility] Comment on above: Performed By: #### L 501.9940, L500.4050 #### [facility] [address] [place], [address] CA,Total 8.9 mg/dL Normal 8.5-10.1 [facility] Comment on above: Performed By: #### L 501.9940, L500.4050 #### [facility] [address] [place], [address] Chloride [Moles/Vol] 107 mmol/L Normal 98-107 [facility] Comment on above: Performed By: #### L 501.9940, L500.4050 #### [facility] [address] [place], [address] CO2 [Moles/Vol] 26.0 mmol/L Normal 21.0-32.0 [facility] Comment on above: Performed By: #### L 501.9940, L500.4050 #### [facility] [address] [place], [address] Creatinine [Mass/Vol] 1.01 mg/dL Normal 0.70-1.30 [facility] Comment on above: Result Comment: The validity of the calculated GFR GFRAA in patients over 70 years has not been determined. Clinical correlation is essential. Performed By: #### L 501.9940, L500.4050 #### [facility] [address] [place], [address] EST GFR - AA 100 mL/min Normal >60 [facility] Comment on above: Result Comment: Afri can [place] GFR Calc Performed By: #### L 501.9940, L500.4050 #### [facility] [address] [place], [address] GAP 6 Normal 5-15 [facility] Comment on above: Performed By: #### L 501.9940, L500.4050 #### [facility] [address] [place], [address] GFR/1.73 sq M.predicted among non-blacks MDRD (S/P/Bld) [Vol rate/Area] 82 mL/min/{1.73_m2} Normal >60 [facility] Comment on above: Result Comment: Non- GFR Calc Performed By: #### L 501.9940, L500.4050 #### [facility] [address] [place], [address] Globulin (S) [Mass/Vol] 3.7 g/dL Normal 2.2-4.2 [facility] Comment on above: Performed By: #### L 501.9940, L500.4050 #### [facility] [address] [place], [address] Glucose [Mass/Vol] 98 mg/dL Normal 74-106 [facility] Comment on above: Performed By: #### L 501.9940, L500.4050 #### [facility] [address] [place], [address] Potassium [Moles/Vol] 3.7 mmol/L Normal 3.5-5.1 [facility] Comment on above: Performed By: #### L 501.9940, [id number] #### [facility] [address] [place], [address] Sodium [Moles/Vol] 139 mmol/L Normal 136-145 [facility] Comment on above: Performed By: #### L 501.9940, [id number] #### [facility] [address] [place], [address] T PROT 7.7 g/dL Normal 6.4-8.2 [facility] Comment on above: Performed By: #### L 501.9940, [id number] #### [facility] [address] [place], [address] Urea nitrogen [Mass/Vol] 14 mg/dL Normal 7-18 [facility] Comment on above: Performed By: #### L 501.9940, L500.4050 #### [facility] [address] [place], [address] PSA,Total- Diagnosticon 11-05 PSA, DIAGNOSTIC 1.32 ng/mL Normal 0.0-4.0 [facility] Comment on above: Result Comment: This test was performed using the TPSA assay method for the [employer] chemistry system. Values obtained with different assay methods cannot be used interchangably. When changing PSA assays in the course of monitoring a patient, additional sequential testing should be carried out to confirm baseline values. Performed By: #### L 501.9940, L500.4050 #### [facility] [address] [place], [address] Office Visiton 11-18-2023 Follow-up visit [id number] Bhavesh Galindo 1970 M Date Provider Department Center 11/18/2023 [id number] [facility] Family History Problem Relation Age of Onset Heart attack Father Cancer Father Comments: bladder Family Status - Relation Status Age at Father Mother Alive Level of Service:[id number] ID PERIODIC PREVENTIVE MED EST PATIENT 40-64YRS Reason for Visit and Comments: Annual Exam [83] Blood Work [740329] - Done at [facility] last week - pt was called with results Health Maintenance [872] - Pt refused- hep b, shingles, tdap and covid vaccines Mmr vaccine- done as a child [facility] Progress Noteon 11-18-2023 Progress Note Controlled, continue fenofibrate 145 mg and omega-3 fish oil. Normal [facility] Progress Note Encourage weight los s with diet and exercise Normal [facility] Progress Note Controlled, continue low-sodium diet Normal [facility] Progress Note Stable, continue CPA P at current settings. Normal [facility] Progress Note Patient verified by last name and date of . Normal [facility] Progress Note 11/18/2023 Bhavesh Galindo (: 1970) is a 53 y.o. male , Established patient, here for evaluation of the following chief complaint(s): Annual Exam, Blood Work (Done at [facility] last week - pt was called with results ), and Health Maintenance (Pt refused- hep b, shingles, tdap and covid vaccines/Mmr vaccine- done as a child) ASSESSMENT/PLAN: 1. Annual physical exam 2. Primary hypertension Assessment & Plan: Controlled, continue low-sodium diet Orders: - Comprehensive metabolic panel 3. EDGAR on CPAP Assessment & Plan: Stable, continue CPAP at current settings. 4. Mixed hyperlipidemia Assessment & Plan: Controlled, continue fenofibrate 145 mg and omega-3 fish oil. 5. Severe obesity (BMI 35.0-39.9) with comorbidity (HCC) Assessment & Plan: Encourage weight loss with diet and exercise 6. Screening for diabetes mellitus 7. Screening for prostate cancer - PSA Total (Screening) Follow up in about 6 months (around 05/20/2024). SUBJECTIVE/OBJECTIVE: EMIL Aguilar comes in today for his annual exam, follow-up on his hypertension, hyperlipidemia and his EGDAR he says he wears his CPAP every night for 6 to 8 hours. And continues to feel that it is helping. No other complaints at this time, see ROS. Review of Systems Constitutional: Negative for activity [...] Negative. Neurological: Negative for weakness and numbness. Psychiatric/Behaviora l: Negative for dysphoric mood. The patient is not nervous/anxious. Vitals: 11/18/23 0722 BP: 129/74 Pulse: 54 SpO2: 97% Weight: 222 lb 9.6 oz (101 kg) Height: 5' 6.1 (1.679 m) Physical Exam Vitals and nursing note reviewed. Constitutional: General: He is not in acute distress. Appearance: Normal appearance. He is obese. HENT: Right Ear: Tympanic membrane, ear canal and external ear normal. Left Ear: Tympanic membrane, ear canal and external ear normal. Mouth/Throat: Mouth: Mucous membranes are moist. Pharynx: Oropharynx is clear. Eyes: Conjunctiva/sclera: Conjunctivae normal. Pupils: Pupils are equal, round, and reactive to light. Neck: Thyroid: No thyromegaly. Vascular: No carotid bruit. Cardiovascular: Rate and [...] signature was used to authenticate this note. Jeferson Worrell MD 11/18/2023 8:31 AM Normal [facility] Lipid Profileon 11-13-2023 Cholesterol [Mass/Vol] 166 mg/dL Normal 200 [facility] Comment on above: Result Comment: <200 mg/dL Desirable 200-240 mg/dL Borderline >240 mg/dL High Risk Performed By: #### L 500.4100 #### [facility] [address] [facility] [address] Cholesterol in HDL [Mass/Vol] 34 mg/dL Low [facility] Comment on above: Result Comment: The drugs N-Acetylcysteine and Metamizole may falsely depress this assay. Reference Range HDL <40 mg/dL Low HDL Cholesterol HDL >or= 60 mg/dL High HDL Cholesterol Performed By: #### L 500.4100 #### [facility] [address] [facility] [address] Cholesterol in LDL [Mass/Vol] 108 mg/dL Normal 0-130 [facility] Comment on above: Performed By: #### L 500.4100 #### [facility] [address] [place], [address] Cholesterol in VLDL [Mass/Vol] 24 mg/dL Normal 5-40 [facility] Comment on above: Performed By: #### L 500.4100 #### [facility] [address] [place], [address] Triglyceride [Mass/Vol] 121 mg/dL Normal [facility] Comment on above: Result Comment: The drugs N-Acetylcysteine and Metamizole may falsely depress this assay. Serum Triglycerides Reference Interval Normal <150 mg/dL Borderline high 150 - 199 mg/dL High 200 - 499 mg/dL Very High > or = 500 mg/dL Performed By: #### L 500.4100 #### [facility] [address] [place], [address] Basophil percentageOrdered B y: Jeferson Worrell on 04-24-2023 Cholesterol [Mass/Vol] 182 mg/dL <200 [facility] Comment on above: <200 mg/dL Desirable 200-240 mg/dL Borderline >240 mg/dL High Risk Triglyceride [Mass/Vol] 125 mg/dL <199 [facility] Comment on above: The drugs N-Acetylcy steine and Metamizole may falsely depress this assay.Serum Triglycerides Reference Interval Normal <150 mg/dL Borderline high 150 - 199 mg/dL High 200 - 499 mg/dL Very High > or = 500 mg/dL High density lipoprotein (HD L) measurementOrdered By: Jeferson Worrell on 04-24-2023 Cholesterol in HDL (Body fld) [Mass/Vol] 32 mg/dL >40 [facility] Comment on above: The drugs N-Acetylcy steine and Metamizole may falsely depress this assay. Reference Range HDL <40 mg/dL Low HDL Cholesterol HDL >or= 60 mg/dL High HDL Cholesterol Laboratory - Chemistry and C hemistry - challengeOrdered By: Jeferson Worrell on 04-24-2023 ALT [Catalytic activity/Vol] 38 U/L 16-61 [facility] Low density lipoprotein (LDL ) cholesterol measurementOrdered By: Jeferson Worrell on 04-24-2023 Cholesterol in LDL (Body fld) [Moles/Vol] 125 mg/dL 0-130 [facility] Thin prep Papanicolaou smear with manual screeningOrdered By: Jeferson Worrell on 04-24-2023 Thin prep Papanicolaou smear with manual screening 22 U/L 15-37 [facility] Very low density lipoprotein (VLDL) cholesterol measurementOrdered By: Jeferson Worrell on 04-24-2023 Cholesterol in VLDL Calc [Moles/Vol] 25 mg/dL 5-40 [facility] Basophil percentageOrdered B y: Jeferson Worrell on 10-29-2022 Bilirubin [Mass/Vol] 0.50 mg/dL 0.20-1.00 [facility] Comment on above: For patients on eltr ombopag therapy, use of Dimension [place] TBIL is not recommended. Chloride [Moles/Vol] 106 mmol/L 98-107 [facility] Cholesterol [Mass/Vol] 168 mg/dL <200 [facility] Comment on above: <200 mg/dL Desirable 200-240 mg/dL Borderline >240 mg/dL High Risk Glucose [Mass/Vol] 97 mg/dL 74-106 [facility] Potassium [Moles/Vol] 3.5 mmol/L 3.5-5.1 [facility] Protein [Mass/Vol] 7.7 g/dL 6.4-8.2 [facility] Sodium [Moles/Vol] 136 mmol/L 136-145 [facility] Triglyceride [Mass/Vol] 349 mg/dL <199 [facility] Comment on above: The drugs N-Acetylcy steine and Metamizole may falsely depress this assay.Serum Triglycerides Reference Interval Normal <150 mg/dL Borderline high 150 - 199 mg/dL High 200 - 499 mg/dL Very High > or = 500 mg/dL WBC (Bld) [#/Vol] 5.2 10*3/uL 4.4-11.0 [facility] Blood erythrocytes count (nu mber/volume)Ordered By: Jeferson Worrell on 10-29-2022 RBC (Bld) [#/Vol] 4.95 10*6/uL 4.6-6.2 [facility] Blood hemoglobin measurement (mass/volume)Ordered By: Jeferson Worrell on 10-29-2022 Hemoglobin (Bld) [Mass/Vol] 15.0 g/dL 13.0-16.5 [facility] Blood platelet mean volumeOr dered By: Jeferson Worrell on 10-29-2022 Platelet mean volume (Bld) [Entitic vol] 9.9 fL 6.2-12.0 [facility] Determination of erythrocyte mean corpuscular volume (MCV)Ordered By: Jeferson Worrell on 10-29-2022 MCV (RBC) [Entitic vol] 89.5 fL 80-94 [facility] Hematocrit Auto (Bld) [Volum e fraction]Ordered By: Jeferson Worrell on 10-29-2022 Hematocrit (Bld) [Volume fraction] 44.3 % 40-54 [facility] - Chemistry and C hemistry - challengeOrdered By: Jeferson Worrell on 10-29-2022 ALP [Catalytic activity/Vol] 45 U/L 45-117 [facility] ALT [Catalytic activity/Vol] 39 U/L 16-61 [facility] CO2 [Moles/Vol] 24.0 mmol/L 21.0-32.0 [facility] Globulin (S) [Mass/Vol] 3.7 g/dL 2.2-4.2 [facility] Urea nitrogen/Creatinine [Mass ratio] 13.5 mg/mg 10-20 [facility] - Hematology and Cell countsOrdered By: Jeferson Worrell on 10-29-2022 Erythrocyte distribution width (RBC) [Entitic vol] 41.7 fL 35.1-43.9 [facility] Erythrocyte distribution width (RBC) [Ratio] 12.8 % 11.6-14.6 [facility] MCH (RBC) [Entitic mass] 30.3 pg 27.0-32.0 [facility] MCHC Auto (RBC) [Mass/Vol]Or dered By: Jeferson Worrell on 10-29-2022 MCHC (RBC) [Mass/Vol] 33.9 g/dL 32-36 [facility] No Panel InformationOrdered By: Jeferson Worrell on 10-29-2022 Estimated GFR (MDRD) Amer 97 mL/min >60 [facility] Comment on above: GFR Calc Estimated GFR (MDRD) Non-Af Amer 80 mL/min >60 [facility] Comment on above: Non- GFR Calc Prostate Specific Antigen Screen 1.29 ng/mL 0.00-4.00 [facility] Comment on above: This test was perfor med using the TPSA assay method for the[employer] chemistry system. Values obtained with differentassay methods cannot be used interchangably.When changing PSA assays in the course of monitoring apatient, additional sequential testing should be carriedout to confirm baseline values. Platelets bldOrdered By: David Worrell on 10-29-2022 Platelets (Bld) [#/Vol] 209 10*3/uL 150-450 [facility] Serum or plasma albumin john urement (mass/volume)Ordered By: Jeferson Worrell on 10-29-2022 Albumin [Mass/Vol] 4.0 g/dL 3.2-5.0 [facility] Serum or plasma albumin/glob ulin mass ratioOrdered By: Jeferson Worrell on 10-29-2022 Albumin/Globulin [Mass ratio] 1.1 {ratio} 0.9-2.4 [facility] Serum or plasma calcium john urement (mass/volume)Ordered By: Jeferson Worrell on 10-29-2022 Calcium [Mass/Vol] 8.9 mg/dL 8.5-10.1 [facility] Serum or plasma cholesterol in HDL measurement (mass/volume)Ordered By: Jeferson Worrell on 10-29-2022 Cholesterol in HDL [Mass/Vol] 31 mg/dL >40 [facility] Comment on above: The drugs N-Acetylcy steine and Metamizole may falsely depress this assay. Reference Range HDL <40 mg/dL Low HDL Cholesterol HDL >or= 60 mg/dL High HDL Cholesterol Serum or plasma cholesterol in VLDL measurement (mass/volume)Ordered By: Jeferson Worrell on 10-29-2022 Cholesterol in VLDL [Mass/Vol] 70 mg/dL 5-40 [facility] Serum or plasma creatinine m easurement (mass/volume)Ordered By: Jeferson Worrell 10-29-2022 Creatinine [Mass/Vol] 1.04 mg/dL 0.70-1.30 [facility] Comment on above: The validity of the calculated GFR & GFRAA in patients over 70 years has not been determined. Clinical correlation is essential. Serum or plasma low density lipoprotein (LDL) cholesterol measurement (mass/volume)Ordered By: Jeferson Worrell on 10-29-2022 Cholesterol in LDL [Mass/Vol] 67 mg/dL 0-130 [facility] Serum or plasma urea nitroge n measurement (mass/volume)Ordered By: Jeferson Worrell on 10-29-2022 Urea nitrogen [Mass/Vol] 14 mg/dL 7-18 [facility] Thin prep Papanicolaou smear with manual screeningOrdered By: Jeferson Worrell on 10-29-2022 Thin prep Papanicolaou smear with manual screening 22 U/L 15-37 [facility] Thin prep Papanicolaou smear with manual screening 6 5-15 [facility] Basophil percentageOrdered B y: Dr. Worrell on 04-30-2022 Bilirubin [Mass/Vol] 0.50 mg/dL 0.20-1.00 [facility] Comment on above: For patients on eltr ombopag therapy, use of [place] TBIL is not recommended. Chloride [Moles/Vol] 109 mmol/L 98-107 [facility] Cholesterol [Mass/Vol] 152 mg/dL <200 [facility] Comment on above: <200 mg/dL Desirable 200-240 mg/dL Borderline >240 mg/dL High Risk Glucose [Mass/Vol] 99 mg/dL 74-106 [facility] Potassium [Moles/Vol] 3.6 mmol/L 3.5-5.1 [facility] Protein [Mass/Vol] 7.6 g/dL 6.4-8.2 [facility] Sodium [Moles/Vol] 140 mmol/L 136-145 [facility] Triglyceride [Mass/Vol] 146 mg/dL <199 [facility] Comment on above: The drugs N-Acetylcy steine and Metamizole may falsely depress this assay.Serum Triglycerides Reference Interval Normal <150 mg/dL Borderline high 150 - 199 mg/dL High 200 - 499 mg/dL Very High > or = 500 mg/dL Laboratory - Chemistry and C hemistry - challengeOrdered By: Dr. Worrell on 04-30-2022 ALP [Catalytic activity/Vol] 46 U/L 45-117 [facility] ALT [Catalytic activity/Vol] 41 U/L 16-61 [facility] CO2 [Moles/Vol] 26.0 mmol/L 21.0-32.0 [facility] Globulin (S) [Mass/Vol] 3.6 g/dL 2.2-4.2 [facility] Urea nitrogen/Creatinine [Mass ratio] 14.9 mg/mg 10-20 [facility] No Panel InformationOrdered By: Dr. Worrell on 04-30-2022 Estimated GFR (MDRD) Amer 100 mL/min >60 [facility] Comment on above: GFR Calc Estimated GFR (MDRD) Non-Af Amer 83 mL/min >60 [facility] Comment on above: Non- GFR Calc Serum or plasma albumin john urement (mass/volume)Ordered By: Dr. Worrell on 04-30-2022 Albumin [Mass/Vol] 4.0 g/dL 3.2-5.0 [facility] Serum or plasma albumin/glob ulin mass ratioOrdered By: Dr. Worrell on 04-30-2022 Albumin/Globulin [Mass ratio] 1.1 {ratio} 0.9-2.4 [facility] Serum or plasma calcium john urement (mass/volume)Ordered By: Dr. Worrell on 04-30-2022 Calcium [Mass/Vol] 9.1 mg/dL 8.5-10.1 [facility] Serum or plasma cholesterol in HDL measurement (mass/volume)Ordered By: Dr. Worrell on 04-30-2022 Cholesterol in HDL [Mass/Vol] 35 mg/dL >40 [facility] Comment on above: The drugs N-Acetylcy steine and Metamizole may falsely depress this assay. Reference Range HDL <40 mg/dL Low HDL Cholesterol HDL >or= 60 mg/dL High HDL Cholesterol Serum or plasma cholesterol in VLDL measurement (mass/volume)Ordered By: Dr. Worrell on 04-30-2022 Cholesterol in VLDL [Mass/Vol] 29 mg/dL 5-40 [facility] Serum or plasma creatinine m easurement (mass/volume)Ordered By: Dr. Worrell on 04-30-2022 Creatinine [Mass/Vol] 1.01 mg/dL 0.70-1.30 [facility] Comment on above: The validity of the calculated GFR & GFRAA in patients over 70 years has not been determined. Clinical correlation is essential. Serum or plasma low density lipoprotein (LDL) cholesterol measurement (mass/volume)Ordered By: Dr. Worrell on 04-30-2022 Cholesterol in LDL [Mass/Vol] 88 mg/dL 0-130 [facility] Serum or plasma urea nitroge n measurement (mass/volume)Ordered By: Dr. Worrell on 04-30-2022 Urea nitrogen [Mass/Vol] 15 mg/dL 7-18 [facility] Thin prep Papanicolaou smear with manual screeningOrdered By: Dr. Worrell on 04-30-2022 Thin prep Papanicolaou smear with manual screening 21 U/L 15-37 [facility] Thin prep Papanicolaou smear with manual screening 5 5-15 [facility] Basophil percentageon 2021 Cholesterol [Mass/Vol] 203 mg/dL <200 [facility] Work Phone: Comment on above: <200 mg/dL Desirable 200-240 mg/dL Borderline >240 mg/dL High Risk Triglyceride [Mass/Vol] 607 mg/dL <199 [facility] Work Phone: Comment on above: The drugs N-Acetylcy steine and Metamizole may falsely depress this assay. TRIGLYCERIDE IS GREATER THAN 400 mg/dL. LDL RESULT IS INVALID AND WILL NOT BE REPORTED.Serum Triglycerides Reference Interval Normal <150 mg/dL Borderline high 150 - 199 mg/dL High 200 - 499 mg/dL Very High > or = 500 mg/dL HIV 1 and HIV-2 antibody ass ay with HIV-1 p24 antigen detectionon 11-05-2021 HIV 1+2 Ab+HIV1 p24 Ag IA Ql Non-Reactive Nonreactive [facility] Work Phone: No Panel Informationon 11-05 Hepatitis C Antibody Non-Reactive Nonreactive [facility] Work Phone: Comment on above: Non Reactive: < 0.8 Equivocal: >/= 0.8 to < 1.0 Reactive: >/= 1.0The CDC recommends that a reactive/equivocal HCV antibody result be followed up by the HCV Nucleic Acid Amplificationtest (178839) Serum or plasma cholesterol in HDL measurement (mass/volume)on 11-05-2021 Cholesterol in HDL [Mass/Vol] 28 mg/dL >40 [facility] Work Phone: Comment on above: The drugs N-Acetylcy steine and Metamizole may falsely depress this assay. Reference Range HDL <40 mg/dL Low HDL Cholesterol HDL >or= 60 mg/dL High HDL Cholesterol Serum or plasma cholesterol in VLDL measurement (mass/volume)on 11-05-2021 Cholesterol in VLDL [Mass/Vol] [facility] Work Phone: Comment on above: Test not performed Serum or plasma low density lipoprotein (LDL) cholesterol measurement (mass/volume)on 11-05-2021 Cholesterol in LDL [Mass/Vol] [facility] Work Phone: Comment on above: Test not performed Basophil percentageon 2021 Bilirubin [Mass/Vol] 0.50 mg/dL 0.20-1.00 [facility] Work Phone: Comment on above: For patients on eltr ombopag therapy, use of [place] TBIL is not recommended. Chloride [Moles/Vol] 103 mmol/L 98-107 [facility] Work Phone: Cholesterol [Mass/Vol] 222 mg/dL <200 [facility] Work Phone: [phone] Comment on above: <200 mg/dL Desirable 200-240 mg/dL Borderline >240 mg/dL High Risk Glucose [Mass/Vol] 102 mg/dL 74-106 [facility] Work Phone: Comment on above: Fasting Glucose resu lt from 100 to 125 mg/dL suggests IMPAIRED HOMEOSTASIS per A.D.A. criteria. Potassium [Moles/Vol] 3.6 mmol/L 3.5-5.1 [facility] Work Phone: [phone] Protein [Mass/Vol] 7.9 g/dL 6.4-8.2 [facility] Work Phone: [phone] Sodium [Moles/Vol] 137 mmol/L 136-145 [facility] Work Phone: [phone] Triglyceride [Mass/Vol] 644 mg/dL <199 [facility] Work Phone: [phone] Comment on above: The drugs N-Acetylcy steine and Metamizole may falsely depress this assay. TRIGLYCERIDE IS GREATER THAN 400 mg/dL. LDL RESULT IS INVALID AND WILL NOT BE REPORTED.Serum Triglycerides Reference Interval Normal <150 mg/dL Borderline high 150 - 199 mg/dL High 200 - 499 mg/dL Very High > or = 500 mg/dL Laboratory - Chemistry and C hemistry - challengeon 10-01-2021 ALP [Catalytic activity/Vol] 55 U/L 45-117 [facility] Work Phone: [phone] ALT [Catalytic activity/Vol] 50 U/L 16-61 [facility] Work Phone: [phone] CO2 [Moles/Vol] 25.0 mmol/L 21.0-32.0 [facility] Work Phone: [phone] Globulin (S) [Mass/Vol] 4.2 g/dL 2.2-4.2 [facility] Work Phone: [phone] Urea nitrogen/Creatinine [Mass ratio] 16.4 mg/mg 10-20 [facility] Work Phone: [phone] No Panel Informationon 10-01 Estimated GFR (MDRD) Amer 122 mL/min >60 [facility] Work Phone: Comment on above: GFR Calc Estimated GFR (MDRD) Non-Af Amer 101 mL/min >60 [facility] Work Phone: Comment on above: Non- GFR Calc Prostate Specific Antigen Screen 0.98 ng/mL 0.00-4.00 [facility] Work Phone: Comment on above: This test was perfor med using the TPSA assay method [facility] the[facility]. Values obtained with differentassay methods cannot be used interchangably.When changing PSA assays in the course of monitoring apatient, additional sequential testing should be carriedout to confirm baseline values. Serum or plasma albumin john urement (mass/volume)on 10-01-2021 Albumin [Mass/Vol] 3.7 g/dL 3.2-5.0 [facility] Work Phone: Serum or plasma albumin/glob ulin mass ratioon 10-01-2021 Albumin/Globulin [Mass ratio] 0.9 {ratio} 0.9-2.4 [facility] Work Phone: Serum or plasma calcium john urement (mass/volume)on 10-01-2021 Calcium [Mass/Vol] 8.8 mg/dL 8.5-10.1 [facility] Work Phone: Serum or plasma cholesterol in HDL measurement (mass/volume)on 10-01-2021 Cholesterol in HDL [Mass/Vol] 33 mg/dL >40 [facility] Work Phone: Comment on above: The drugs N-Acetylcy steine and Metamizole may falsely depress this assay. Reference Range HDL <40 mg/dL Low HDL Cholesterol HDL >or= 60 mg/dL High HDL Cholesterol Serum or plasma cholesterol in VLDL measurement (mass/volume)on 10-01-2021 Cholesterol in VLDL [Mass/Vol] [facility] Work Phone: Comment on above: Test not performed Serum or plasma creatinine m easurement (mass/volume)on 10-01-2021 Creatinine [Mass/Vol] 0.85 mg/dL 0.70-1.30 [facility] Work Phone: Comment on above: The validity of the calculated GFR & GFRAA in patients over 70 years has not been determined. Clinical correlation is essential. Serum or plasma low density lipoprotein (LDL) cholesterol measurement (mass/volume)on 10-01-2021 Cholesterol in LDL [Mass/Vol] [facility] Work Phone: Comment on above: Test not performed Serum or plasma urea nitroge n measurement (mass/volume)on 10-01-2021 Urea nitrogen [Mass/Vol] 14 mg/dL 7-18 [facility] Work Phone: [phone] Thin prep Papanicolaou smear with manual screeningon 10-01-2021 Thin prep Papanicolaou smear with manual screening 30 U/L 15-37 [facility] Work Phone: [phone] Thin prep Papanicolaou smear with manual screening 9 5-15 [facility] Work Phone: Vital Signs Date Time Vital Sign Value Performing Clinician Alex freeman 06-01-2024 07:18-0500 Diastolic blood pressure 69 mm[Hg] Jeferson Worrell MD Work Phone: [employer] 06-01-2024 07:18-0500 Heart rate 73 /min Jeferson Worrell MD Work Phone: [employer] [employer] 06-01-2024 07:18-0500 Systolic blood pressure 144 mm[Hg] Jeferson Worrell MD Work Phone: [employer] 06-01-2024 06:54-0500 Body height 167.9 cm Jeferson Worrell MD Work Phone: [employer] 06-01-2024 06:54-0500 Body mass index (BMI) [Ratio] 36.37 kg/m2 Jeferson Worrell MD Work Phone: [employer] 06-01-2024 06:54-0500 Body weight 102.51 kg Jeferson Worrell MD Work Phone: [employer] 06-01-2024 06:54-0500 SaO2% (BldA) [Mass fraction] 95 % Jeferson Worrell MD Work Phone: [employer] 11-18-2023 07:22-0400 Body height 167.9 cm Jeferson Worrell MD Work Phone: [employer] 11-18-2023 07:22-0400 Body mass index (BMI) [Ratio] 35.82 kg/m2 Jeferson Worrell MD Work Phone: [employer] 11-18-2023 07:22-0400 Body weight 100.97 kg Jeferson Worrell MD Work Phone: [employer] 11-18-2023 07:22-0400 Diastolic blood pressure 74 mm[Hg] Jeferson Worrell MD Work Phone: [employer] 11-18-2023 07:22-0400 Heart rate 54 /min Jeferson Worrell MD Work Phone: [employer] 11-18-2023 07:22-0400 SaO2% (BldA) [Mass fraction] 97 % Jeferson Worrell MD Work Phone: Done. 11-18-2023 07:22-0400 Systolic blood pressure 129 mm[Hg] Jeferson Worrell MD Work Phone: Done[facility] 04-28-2023 06:58-0500 Body height 167.9 cm Jeferson Worrell MD Work Phone: Done. 04-28-2023 06:58-0500 Body mass index (BMI) [Ratio] 36.53 kg/m2 Jeferson Worrell MD Work Phone: Done. 04-28-2023 06:58-0500 Body weight 102.97 kg Jeferson Worrell MD Work Phone: Done. 04-28-2023 06:58-0500 Diastolic blood pressure 78 mm[Hg] Jeferson Worrell MD Work Phone: Done. 04-28-2023 06:58-0500 Heart rate 75 /min Jeferson Worrell MD Work Phone: Done. 04-28-2023 06:58-0500 SaO2% (BldA) [Mass fraction] 96 % Jeferson Worrell MD Work Phone: Done. 04-28-2023 06:58-0500 Systolic blood pressure 134 mm[Hg] Jeferson Worrell MD Work Phone: Done. 10-30-2022 08:49-0400 Diastolic blood pressure 94 mm[Hg] Jeferson Worrell MD Work Phone: Done. 10-30-2022 08:49-0400 Heart rate 69 /min Jeferson Worrell MD Work Phone: Done. 10-30-2022 08:49-0400 Systolic blood pressure 158 mm[Hg] Jeferson Worrell MD Work Phone: Done. 10-30-2022 08:22-0400 Body height 167.9 cm Jeferson Worrell MD Work Phone: Done. 10-30-2022 08:22-0400 Body mass index (BMI) [Ratio] 36.95 kg/m2 Jeferson Worrell MD Work Phone: [facility] [employer] 10-30-2022 08:22-0400 Body weight 104.15 kg Jeferson Worrell MD Work Phone: [facility] [employer] 10-30-2022 08:22-0400 SaO2% (BldA) [Mass fraction] 96 % Jeferson Worrell MD Work Phone: [facility] [employer] 05-08-2022 08:22-0500 Body height 167.9 cm Jeferson Worrell MD Work Phone: [facility] [employer] 05-08-2022 08:22-0500 Body mass index (BMI) [Ratio] 35.4 kg/m2 Jeferson Worrell MD Work Phone: [facility] [employer] 05-08-2022 08:22-0500 Body weight 99.79 kg Jeferson Worrell MD Work Phone: [facility] 05-08-2022 08:22-0500 Diastolic blood pressure 68 mm[Hg] Jeferson Worrell MD Work Phone: [facility] 05-08-2022 08:22-0500 Heart rate 56 /min Jeferson Worrell MD Work Phone: [facility] [employer] 05-08-2022 08:22-0500 Systolic blood pressure 123 mm[Hg] Jeferson Worrell MD Work Phone: [facility] Encounters Encounter Date Encounter Type Care Provider Facility Start: 11-15-2024 End: 11-15-2024 Refill Jeferson Worrell MD Work Phone: [facility] Comment on above: Other Start: 06-29-2024 End: 06-29-2024 Refill [facility] Start: 06-08-2024 End: 06-08-2024 ambulatory JEFERSON WORRELL [facility] Start: 06-01-2024 End: 06-01-2024 Office outpatient visit 25 minutes Jeferson Worrell MD Work Phone: [facility] Comment on above: Mixed hyperlipidemia (Primary Dx); Primary hypertension; Severe obesity (BMI 35.0-39.9) with comorbidity (HCC); EDGAR on CPAP; Influenza vaccine refused Start: 06-01-2024 End: 06-01-2024 ambulatory [facility] Start: 05-26-2024 End: 05-26-2024 [facility] Start: 11-21-2023 End: 11-21-2023 Telephone encounter Lor Burks [facility] Comment on above: Discuss Labs; Releas e of Information Start: 11-21-2023 End: 11-21-2023 [facility] Start: 11-18-2023 End: 11-18-2023 Patient encounter procedure Jeferson Worrell MD Work Phone: [facility] Work Phone: Start: 11-18-2023 End: 11-18-2023 Periodic preventive med est patient 40-64yrs Jeferson Worrell MD Work Phone: [facility] Comment on above: Annual physical exam (Primary Dx); Primary hypertension; EDGAR on CPAP; Mixed hyperlipidemia; Severe obesity (BMI 35.0-39.9) with comorbidity (HCC); Screening for diabetes mellitus; Screening for prostate cancer Start: 11-18-2023 End: 11-18-2023 ambulatory [facility] Start: 11-18-2023 End: 11-18-2023 Encounter for general adult medical examination without abnormal findings [facility] Start: 11-13-2023 End: 11-13-2023 [facility] Start: 11-10-2023 End: 11-10-2023 Telephone encounter Jeferson Worrell MD Work Phone: [facility] Comment on above: Request For Order(s) Start: 04-28-2023 End: 04-28-2023 Office outpatient visit 25 minutes Jeferson Worrell MD Work Phone: [facility] Comment on above: Primary hypertension (Primary Dx); Mixed hyperlipidemia; Severe obesity (BMI 35.0-39.9) with comorbidity (HCC); EDGAR on CPAP Start: 04-24-2023 End: 04-24-2023 ambulatory [facility] Work Phone: Start: 04-24-2023 End: 04-24-2023 Patient encounter procedure [facility] Work Phone: Start: 04-21-2023 Telephone encounter Jeferson Teran MD Work Phone: [facility] Comment on above: Request For Order(s) Start: 10-30-2022 End: 10-30-2022 Patient encounter procedure Jeferson Worrell MD Work Phone: [facility] Work Phone: Start: 10-30-2022 End: 10-30-2022 Periodic preventive med est patient 40-64yrs Jeferson Worrell MD Work Phone: [facility] Comment on above: Annual physical exam (Primary Dx); EDGAR on CPAP; Primary hypertension; Severe obesity (BMI 35.0-39.9) with comorbidity (HCC); Mixed hyperlipidemia Start: 10-29-2022 End: 10-29-2022 ambulatory [facility] Work Phone: Start: 10-29-2022 End: 10-29-2022 Patient encounter procedure [facility] Work Phone: Start: 06-24-2022 Refill Jeferson Worrell MD Work Phone: [facility] Start: 05-08-2022 End: 05-08-2022 Office outpatient visit 25 minutes Jeferson Worrell MD Work Phone: [facility] Comment on above: Primary hypertension (Primary Dx); Mixed hyperlipidemia; Severe obesity (BMI 35.0-39.9) with comorbidity (CMS/HCC) (HCC); EDGAR on CPAP Start: 04-30-2022 End: 04-30-2022 ambulatory [facility] Work Phone: Start: 04-30-2022 End: 04-30-2022 Patient encounter procedure [facility] Start: 11-05-2021 End: 11-05-2021 Patient encounter procedure [facility] Start: 10-01-2021 End: 10-01-2021 Patient encounter procedure [facility] Procedures Date Procedure Procedure Detail Performing Clinician Start: 05-28-2024 Adult depression screening assessment Jeferson Worrell MD Work Phone: Start: 11-17-2023 Adult depression screening assessment Jeferson Worrell MD Work Phone: Start: 11-13-2023 Lipid 1996 panel - S hiren or Plasma Jeferson Worrell MD Work Phone: Start: 04-24-2023 Lipid 1996 panel - S hiren or Plasma Jeferson Worrell MD Work Phone: Start: 10-31-2022 Lipid 1996 panel - S hiren or Plasma Jeferson Worrell MD Work Phone: Start: 10-29-2022 Adult depression screening assessment Jeferson Worrell MD Work Phone: Start: 04-30-2022 Lipid 1996 panel - S hiren or Plasma Jeferson Worrell MD Work Phone: Start: 11-13-2021 Lipid 1996 panel - S hiren or Plasma Jeferson Worrell MD Work Phone: Plan of Treatment Date Care Activity Detail Author Start: 2046 RSV Immunization for Adults (1 - 1-dose 75+ series) RSV Immunization for Adults (1 - 1-dose 75+ series) [facility] Start: 02-05-2032 Screening for malign ant neoplasm of colon [facility] Start: 2031 RSV Immunization age d 60 or older (1 - 1-dose 60+ series) RSV Immunization aged 60 or older (1 - 1-dose 60+ series) [facility] Start: 11-12-2028 Lipid panel Lipid Panel [facility] Start: 04-24-2028 Lipid panel Lipid Panel [facility] Start: 11-01-2027 Lipid panel Lipid Panel [facility] Start: 04-30-2027 Lipid panel Lipid Panel [facility] Start: 11-13-2026 Lipid panel Lipid Panel [facility] Start: 05-28-2025 COVID-19 Vaccine ( season) COVID-19 Vaccine ( season) [facility] Comment on above: Postponed from 12/06 (Patient Refused) Start: 05-28-2025 Depression Screening Depression Scre ening [facility] Start: 05-28-2025 Pneumococcal Vaccine : 50+ Years (1 of 1 - PCV) Pneumococcal Vaccine: 50+ Years (1 of 1 - PCV) [facility] Comment on above: Postponed from 02/02 (Patient Refused) Start: 12-06-2024 Influenza vaccination Influenza Vacc ine (#1) [facility] Start: 11-24-2024 End: 11-24-2024 Patient encounter procedure [facility] Start: 11-16-2024 COVID-19 Vaccine ( season) COVID-19 Vaccine ( season) [facility] Comment on above: Postponed from 12/06 (Patient Refused) Start: 11-16-2024 Depression Screening Depression Scre ening [facility] Start: 11-16-2024 DTaP/Tdap/Td Vaccine s (2 - Tdap) DTaP/Tdap/Td Vaccines (2 - Tdap) [facility] Comment on above: Postponed from 01/15 (Patient Refused) Start: 11-16-2024 Hepatitis B Vaccines (1 of 3 - 19+ 3-dose series) Hepatitis B Vaccines (1 of 3 - 19+ 3-dose series) [facility] Comment on above: Postponed from 02/02 (Patient Refused) Start: 11-16-2024 Zoster Vaccines (1 of 2) Zoster Vacc raquel (1 of 2) [facility] Comment on above: Postponed from 02/02 (Patient Refused) Start: 10-04-2024 Influenza vaccination Influenza Vacc ine (#1) [facility] Comment on above: Postponed from 12/06 (Patient Refused) Start: 06-08-2024 End: 06-08-2024 Clinical Support 06/08/2024 7:30 AM EST Clinical Support [facility] [address] [place] [address] [facility] Start: 06-01-2024 End: 06-29-2024 Alanine aminotransferase [Enzymatic activity/volume] in Serum or Plasma ALT Lab Routine Mixed hyperlipidemia Expected: 06/01/2024 (Approximate), Expires: 06/29/2024 [facility] Work Phone: Comment on above: Expected: 06/01/2024 (Approximate), Expires: 06/29/2024 Start: 06-01-2024 End: 06-29-2024 Aspartate aminotransferase [Enzymatic activity/volume] in Serum or Plasma AST Lab Routine Mixed hyperlipidemia Expected: 06/01/2024 (Approximate), Expires: 06/29/2024 [facility] Comment on above: Expected: 06/01/2024 (Approximate), Expires: 06/29/2024 Start: 06-01-2024 End: 06-29-2024 Lipid 1996 panel - Serum or Plasma Lipid panel Lab Routine Mixed hyperlipidemia Expected: 06/01/2024 (Approximate), Expires: 06/29/2024 [facility] Comment on above: Expected: 06/01/2024 (Approximate), Expires: 06/29/2024 Start: 06-01-2024 End: 06-01-2024 Patient encounter procedure 06/01/2024 7:00 AM EST Office Visit [facility] [address] [place] [address] Jeferson Worrell MD [address] [place] [id number] [facility] Start: 12-07-2023 Influenza vaccination Influenza Vacc ine (#1) [facility] Start: 11-18-2023 End: 11-17-2024 Comprehensive metabolic 1998 panel - Serum or Plasma Comprehensive metabolic panel Lab Routine Primary hypertension Expected: 11/18/2023 (Approximate), Expires: 11/17/2024 [facility] Work Phone: Comment on above: Expected: 11/18/2023 (Approximate), Expires: 11/17/2024 Start: 11-18-2023 End: 11-17-2024 PSA Total (Screening) PSA Total (Screening) Lab Routine Screening for prostate cancer Expected: 11/18/2023 (Approximate), Expires: 11/17/2024 [facility] Comment on above: Expected: 11/18/2023 (Approximate), Expires: 11/17/2024 Start: 11-18-2023 End: 11-18-2023 Patient encounter procedure 11/18/2023 7:30 AM EDT Office [place] [address] [place] [address] Jeferson Worrell MD [address] [place] [id number] [facility] Start: 11-11-2023 End: 11-10-2024 Lipid 1996 panel - Serum or Plasma Lipid panel Lab Routine Mixed hyperlipidemia Expected: 11/11/2023 (Approximate), Expires: 11/10/2024 [facility] Work Phone: Comment on above: Expected: 11/11/2023 (Approximate), Expires: 11/10/2024 Start: 11-05-2023 End: 11-05-2023 Patient encounter procedure 11/05/2023 7:30 AM EDT Office [address] [place] [address] Jeferson Worrell MD [address] [place] [id number] [facility] Start: 10-30-2023 Depression Screening Depression Scre ening [facility] Start: 04-28-2023 End: 04-28-2023 Patient encounter procedure 04/28/2023 7:00 AM EST Office Visit [facility] [address] [facility] [place] [address] Jeferson Worrell MD [address] [place] [address] [place] [address] [facility] Start: 04-21-2023 End: 04-21-2024 Alanine aminotransferase [Enzymatic activity/volume] in Serum or Plasma ALT Lab Routine Mixed hyperlipidemia Expected: 04/21/2023 (Approximate), Expires: 04/21/2024 [facility] Work Phone: Comment on above: Expected: 04/21/2023 (Approximate), Expires: 04/21/2024 Start: 04-21-2023 End: 04-21-2024 Aspartate aminotransferase [Enzymatic activity/volume] in Serum or Plasma AST Lab Routine Mixed hyperlipidemia Expected: 04/21/2023 (Approximate), Expires: 04/21/2024 [facility] Comment on above: Expected: 04/21/2023 (Approximate), Expires: 04/21/2024 Start: 04-21-2023 End: 04-21-2024 Lipid 1996 panel - Serum or Plasma Lipid panel Lab Routine Mixed hyperlipidemia Expected: 04/21/2023 (Approximate), Expires: 04/21/2024 [facility] Comment on above: Expected: 04/21/2023 (Approximate), Expires: 04/21/2024 Start: 12-06-2022 COVID-19 Vaccine ( season) COVID-19 Vaccine ( season) [facility] Start: 12-06-2022 Influenza vaccination Influenza Vacc ine (#1) [facility] Start: 11-07-2022 End: 11-07-2022 Clinical Support 11/07/2022 7:30 AM EDT Clinical Support [facility] [address] [facility] [place] [address] [facility] Start: 10-30-2022 End: 10-30-2022 Patient encounter procedure 10/30/2022 Office Visit Family Medicine Jeferson Worrell MD [address] [facility] [address] [facility] [place] [address] [facility] Start: 10-04-2022 Influenza vaccination Influenza Vacc ine (#1) [facility] Comment on above: Postponed from 12/06 (Patient Refused) Start: 01-15-2022 DTaP/Tdap/Td Vaccine s (2 - Tdap) DTaP/Tdap/Td Vaccines (2 - Tdap) [facility] Start: 2021 Zoster Vaccines (1 of 2) Zoster Vacc raquel (1 of 2) [facility] Start: 1990 Hepatitis B Vaccines (1 of 3 - 19+ 3-dose series) Hepatitis B Vaccines (1 of 3 - 19+ 3-dose series) [facility] Start: 1989 Diabetes mellitus screening Diabetes Screening [facility] Start: 02-03-1972 MMR Vaccines (1 of 1 - Standard series) MMR Vaccines (1 of 1 - Standard series) [facility] Start: 1971 COVID-19 Vaccine (#1) COVID-19 Vacci ne (#1) [facility] Start: 1971 Hepatitis B Vaccines (1 of 3 - 3-dose series) Hepatitis B Vaccines (1 of 3 - 3-dose series) [facility] Start: 1971 Screening for malign ant neoplasm of colon [facility] Immunizations Immunization Date Immunization Notes Care Provider Fa cility 01-16-2012 diphtheria and tetan us toxoids, adsorbed for pediatric use Jeferson Worrell MD Work Phone: [facility] Payers Date Payer Category Payer Self-pay 2022 Commercial Managed C are - PPO [employer] PPO [id number] 2022 Private Health Insurance [employer] PPO [id number] 2022-Present [id number] [place] [id number] Commercial [id number] 2022 Unknown [id number] 2015 [id number] Unknown [id number] Unknown [id number] Social History Date Type Detail Facility Tobacco smoking status MSIS Unkn own if ever smoked [facility] Work Phone: Start: 1970 Sex Assigned At Male [facility] Tobacco smoking status [facility] Never smoked tobacco [facility] Start: 10-30-2022 End: 05-28-2024 Alcohol intake Current drinker of alcohol (finding) [facility] Start: 10-29-2022 End: 06-01-2024 History of Social function [facility] Start: 10-29-2022 End: 06-01-2024 Alcohol Use Disorder Identification Test - Consumption [AUDIT-C] [facility] How often to you hav e a drink containing alcohol? 2-4 times a month [facility] How many standard dr inks containing alcohol do you have on a typical day? 5 or 6 [facility] How often do you hav e 6 or more drinks on 1 occasion? Less than monthly [facility] How hard is it for y ou to pay for the very basics like food, housing, medical care, and heating Not hard at all [facility] (I/We) worried wheth er (my/our) food would run out before (I/we) got money to buy more. Never true [facility] In the past 12 month s, was there a time when you were not able to pay the mortgage or rent on time? No [facility] Start: 10-29-2022 Alcohol Comment 5-6 drinks on a day on the weekend [facility] Start: 1970 Sex Assigned At Not on file [facility] Start: 04-27-2022 End: 10-30-2022 Exposure to SARS-CoV-2 (event) Not sure [facility] Start: 05-08-2022 History SDOH Financial 5 [facility] Start: 05-08-2022 History SDOH Food Worry 1 [facility] Start: 05-08-2022 History SDOH Transport Med 2 [facility] Are you now , , , , never or living with a partner? [facility] How many standard dr inks containing alcohol do you have on a typical day? 1 or 2 [facility] How often do you hav e 6 or more drinks on 1 occasion? Never [facility] Do you feel stress - tense, restless, nervous, or anxious, or unable to sleep at night because your mind is troubled all the time - these days [OSQ] Not at all [facility] Start: 11-05-2021 Sex Male (finding) Linnette lion Clinical Notes 05-08-2022 to 11-15-2024 Telephone Encounter - Vilma Wilson MA - 11/15/2024 1:59 PM EDTTelephone Encounter - Vilma Wilson MA - 11/15/2024 1:59 PM EDTTelephone Encounter - Vilma Wilson MA - 11/15/2024 10:38 AM EDT Note Date & Type Note Facility 11-15-2024 Telephone encount er Note Printed orders for patient, called patient to let him know they are ready to product picker [facility] 11-15-2024 Miscellaneous Notes Formattin g of this note might be different from the original. Printed orders for patient, called patient to let him know they are ready to product picker Yes the active orders Theres active orders in his chart, is that what you would like him to complete? Name of caller: Bhavesh Contact phone number: [phone] Relationship to Patient: patient Provider: Dr Worrell Practice: [place] Chief Complaint/Reason for Call: Patient is requesting lab orders so that he can get them done prior to his visit. He would like to product picker hard copies. Please call when ready. Best time of day caller can be reached: any Patient advised that office/PCP has 24-48 business hours to return their call: Yes documented in this encounter [facility] 11-15-2024 Telephone encount er Note Yes the active orders [facility] Work Phone: 11-15-2024 Telephone encount er Note Rx sent. Follow up as scheduled. [facility] 11-15-2024 Miscellaneous Notes Formattin g of this note might be different from the original. Rx sent. Follow up as scheduled. Ordering provider: Dr Worrell Date of last office visit: 06/01/24 Date of next office visit: 11/24/24 Updated/Validated preferred pharmacy: Yes Patient instructed to contact the pharmacy prior to picking up the medication: Yes (1) Medication name: fenofibrate (Tricor) Medication dosage: 145mg Monthly quantity needed: 30 How many day supply requestin days Medication route: oral (PO) Medication administration time(s): daily If taking medication PRN, reason for taking medication: N/A If this is a controlled substance do you receive this or any other controlled medication from any other doctor or facility: N/A Date of last refill (see medication tab): 06/29/24 2ion name: rosuvastatin (Crestor) Medication dosage: 5mg Monthly quantity needed: 30 How many day supply requestin days Medication route: oral (PO) Medication administration time(s): daily If taking medication PRN, reason for taking medication: N/A If this is a controlled substance do you receive this or any other controlled medication from any other doctor or facility: N/A Date of last refill (see medication tab): 06/01/24 documented in this encounter [facility] 11-15-2024 Telephone encount er Note Theres active orders in his chart, is that what you would like him to complete? [facility] 11-15-2024 Telephone encount er Note Ordering provider: Dr Worrell Date of last office visit: 06/01/24 Date of next office visit: 11/24/24 Updated/Validated preferred pharmacy: Yes Patient instructed to contact the pharmacy prior to picking up the medication: Yes (1) Medication name: fenofibrate (Tricor) Medication dosage: 145mg Monthly quantity needed: 30 How many day supply requestin days Medication route: oral (PO) Medication administration time(s): daily If taking medication PRN, reason for taking medication: N/A If this is a controlled substance do you receive this or any other controlled medication from any other doctor or facility: N/A Date of last refill (see medication tab): 06/29/24 2ion name: rosuvastatin (Crestor) Medication dosage: 5mg Monthly quantity needed: 30 How many day supply requestin days Medication route: oral (PO) Medication administration time(s): daily If taking medication PRN, reason for taking medication: N/A If this is a controlled substance do you receive this or any other controlled medication from any other doctor or facility: N/A Date of last refill (see medication tab): 06/01/24 [facility] Done. 11-15-2024 Telephone encount er Note Name of caller: Bhavesh Contact phone number: [phone] Relationship to Patient: patient Provider: Dr Worrell Practice: [facility] Chief Complaint/Reason for Call: Patient is requesting lab orders so that he can get them done prior to his visit. He would like to product picker hard copies. Please call when ready. Best time of day caller can be reached: any Patient advised that office/PCP has 24-48 business hours to return their call: Yes [facility] Done. 06-29-2024 Telephone encount er Note Medication name: fenofibrate (Tricor) 145 MG tablet Medication dosage: 145 mg (Miligrams Monthly quantity needed: 90 How many day supply requestin Medication route: oral (PO) Medication administration time(s): daily If taking medication PRN, reason for taking medication: N/A If this is a controlled substance do you receive this or any other controlled medication from any other doctor or facility: N/A Ordering provider: Jeferson Worrell MD Date of last office visit: 06/01/24 Date of next office visit: 11/24/24 Date of last refill: (see medication tab): 11/18/23 Updated/Validated preferred pharmacy: Yes [facility] - [address] [address] Patient instructed to contact the pharmacy prior to picking up the medication: Yes [facility] 06-29-2024 Miscellaneous Notes Formattin g of this note might be different from the original. Medication name: fenofibrate (Tricor) 145 MG tablet Medication dosage: 145 mg (Miligrams Monthly quantity needed: 90 How many day supply requestin Medication route: oral (PO) Medication administration time(s): daily If taking medication PRN, reason for taking medication: N/A If this is a controlled substance do you receive this or any other controlled medication from any other doctor or facility: N/A Ordering provider: Jeferson Worrell MD Date of last office visit: 06/01/24 Date of next office visit: 11/24/24 Date of last refill: (see medication tab): 11/18/23 Updated/Validated preferred pharmacy: Yes [facility] - [address] [address] Patient instructed to contact the pharmacy prior to picking up the medication: Yes documented in this encounter [facility] 06-01-2024 Evaluation + Plan note Associated Problem(s): Primary hypertension Blood pressure was slightly elevated today recheck was still borderline high, follow-up in 1 week for blood pressure check currently on no medications. Very strict low-sodium diet less than 2 g a day. [facility] 06-01-2024 Miscellaneous Notes Associate d Problem(s): Primary hypertension Blood pressure was slightly elevated today recheck was still borderline high, follow-up in 1 week for blood pressure check currently on no medications. Very strict low-sodium diet less than 2 g a day. Associated Problem(s): Mixed hyperlipidemia Uncontrolled, cholesterol total is good, bad continues to be borderline high and good is borderline low we will have him continue his fenofibrate at current dose and will add low-dose rosuvastatin 5 mg and have him get repeat lab work in 4 weeks. Associated Problem(s): Severe obesity (BMI 35.0-39.9) with comorbidity (HCC) Stable, encourage weight loss with diet and exercise Associated Problem(s): EDGAR on CPAP Stable, continue CPAP at current settings. documented in this encounter [facility] 06-01-2024 Evaluation + Plan note Associated Problem(s): Mixed hyperlipidemia Uncontrolled, cholesterol total is good, bad continues to be borderline high and good is borderline low we will have him continue his fenofibrate at current dose and will add low-dose rosuvastatin 5 mg and have him get repeat lab work in 4 weeks. [facility] 06-01-2024 Evaluation + Plan note Associated Problem(s): Severe obesity (BMI 35.0-39.9) with comorbidity (HCC) Stable, encourage weight loss with diet and exercise [facility] 06-01-2024 Evaluation + Plan note Associated Problem(s): EDGAR on CPAP Stable, continue CPAP at current settings. [facility] 06-01-2024 History of Presen t illness Narrative Patient verified by last name and date of . Images from the original note were not included. 06/01/2024 Bhavesh Galindo (: 1970) is a 54 y.o. male , Established patient, here for evaluation of the following chief complaint(s): Hyperlipidemia, Hypertension, Sleep Apnea, Medication Check (6 month), and Health Maintenance (Pt refused- pcv 20 and flu vaccines/Pt has not had any covid vaccines) ASSESSMENT/PLAN: 1. Mixed hyperlipidemia Assessment & Plan: Uncontrolled, cholesterol total is good, bad continues to be borderline high and good is borderline low we will have him continue his fenofibrate at current dose and will add low-dose rosuvastatin 5 mg and have him get repeat lab work in 4 weeks. Orders: - ALT - AST - Lipid panel 2. Primary hypertension Assessment & Plan: Blood pressure was slightly elevated today recheck was still borderline high, follow-up in 1 week for blood pressure check currently on no medications. Very strict low-sodium diet less than 2 g a day. 3. Severe obesity (BMI 35.0-39.9) with comorbidity (HCC) Assessment & Plan: Stable, encourage weight loss with diet and exercise 4. EDGAR on CPAP Assessment & Plan: Stable, continue CPAP at current settings. 5. Influenza vaccine refused Follow up in about 6 months (around 11/29/2024) for annual. SUBJECTIVE/OBJECTIVE: HPI -Bhavesh comes in today for 6-month follow-up on his hyperlipidemia, we reviewed his labs that were done through [facility] and is cholesterol continues to be borderline so we will need to add something to that. His blood pressure is a little elevated today we will recheck prior to discharge, he says he wears his CPAP every night for approximately 6 hours. And his weight remains pretty stable. Review of Systems Constitutional: Negative for activity [...] mood. The patient is not nervous/anxious. Vitals: 06/01/24 0654 06/01/24 0718 BP: (!) 149/72 (!) 144/69 Pulse: 74 73 SpO2: 95% Weight: 226 lb (103 kg) Height: 5' 6.1 (1.679 m) Physical [...] clear. Eyes: Extraocular Movements: Extraocular movements intact. Conjunctiva/sclera: Conjunctivae normal. Pupils: Pupils are equal, round, and reactive to light. Neck: Thyroid: No thyromegaly. Vascular: No carotid bruit. Cardiovascular: Rate and [...] signature was used to authenticate this note. Jeferson Worrell MD 06/01/2024 7:31 AM documented in this encounter [facility] 11-21-2023 Telephone encount er Note Message released to patient as written. Called patient no answer no voicemail set up. If patient calls back please advise him, per Dr. Worrell: blood sugar and chemistry are normal and prostate is normal. MCM sent. Patient's further questions if applicable: no Were all questions from office addressed or relayed to the patient from encounter: Yes [facility] 11-21-2023 Miscellaneous Notes Formattin g of this note is different from the original. Message released to patient as written. Called patient no answer no voicemail set up. If patient calls back please advise him, per Dr. Worrell: blood sugar and chemistry are normal and prostate is normal. MCM sent. Patient's further questions if applicable: no Were all questions from office addressed or relayed to the patient from encounter: Yes Called patient no answer no voicemail set up. If patient calls back please advise him, per Dr. Worrell: blood sugar and chemistry are normal and prostate is normal. MCM sent. documented in this encounter [facility] 11-21-2023 Telephone encount er Note Called patient no answer no voicemail set up. If patient calls back please advise him, per Dr. Worrell: blood sugar and chemistry are normal and prostate is normal. MCM sent. [facility] 11-18-2023 Evaluation + Plan note Associated Problem(s): Mixed hyperlipidemia Controlled, continue fenofibrate 145 mg and omega-3 fish oil. [facility] 11-18-2023 Evaluation + Plan note Associated Problem(s): Severe obesity (BMI 35.0-39.9) with comorbidity (HCC) Encourage weight loss with diet and exercise [facility] 11-18-2023 Evaluation + Plan note Associated Problem(s): Primary hypertension Controlled, continue low-sodium diet [facility] 11-18-2023 Evaluation + Plan note Associated Problem(s): EDGAR on CPAP Stable, continue CPAP at current settings. [facility] 11-18-2023 Miscellaneous Notes Associate d Problem(s): Mixed hyperlipidemia Controlled, continue fenofibrate 145 mg and omega-3 fish oil. Associated Problem(s): Severe obesity (BMI 35.0-39.9) with comorbidity (HCC) Encourage weight loss with diet and exercise Associated Problem(s): Primary hypertension Controlled, continue low-sodium diet Associated Problem(s): EDGAR on CPAP Stable, continue CPAP at current settings. documented in this encounter [facility] 11-18-2023 History of Presen t illness Narrative Patient verified by last name and date of . Images from the original note were not included. 11/18/2023 Bhavesh Galindo (: 1970) is a 53 y.o. male , Established patient, here for evaluation of the following chief complaint(s): Annual Exam, Blood Work (Done at [facility] last week - pt was called with results ), and Health Maintenance (Pt refused- hep b, shingles, tdap and covid vaccines/Mmr vaccine- done as a child) ASSESSMENT/PLAN: 1. Annual physical exam 2. Primary hypertension Assessment & Plan: Controlled, continue low-sodium diet Orders: - Comprehensive metabolic panel 3. EDGAR on CPAP Assessment & Plan: Stable, continue CPAP at current settings. 4. Mixed hyperlipidemia Assessment & Plan: Controlled, continue fenofibrate 145 mg and omega-3 fish oil. 5. Severe obesity (BMI 35.0-39.9) with comorbidity (HCC) Assessment & Plan: Encourage weight loss with diet and exercise 6. Screening for diabetes mellitus 7. Screening for prostate cancer - PSA Total (Screening) Follow up in about 6 months (around 05/20/2024). SUBJECTIVE/OBJECTIVE: EMIL Aguilar comes in today for his annual exam, follow-up on his hypertension, hyperlipidemia and his EDGAR he says he wears his CPAP every night for 6 to 8 hours. And continues to feel that it is helping. No other complaints at this time, see ROS. Review of Systems Constitutional: Negative for activity [...] mood. The patient is not nervous/anxious. Vitals: 11/18/23 0722 BP: 129/74 Pulse: 54 SpO2: 97% Weight: 222 lb 9.6 oz (101 kg) Height: 5' 6.1 (1.679 m) Physical Exam Vitals and nursing note reviewed. Constitutional: General: He is not in acute distress. Appearance: Normal appearance. He is obese. HENT: Right Ear: Tympanic membrane, ear canal and external ear normal. Left Ear: Tympanic membrane, ear canal and external ear normal. Mouth/Throat: Mouth: Mucous membranes are moist. Pharynx: Oropharynx is clear. Eyes: Conjunctiva/sclera: Conjunctivae normal. Pupils: Pupils are equal, round, and reactive to light. Neck: Thyroid: No thyromegaly. Vascular: No carotid bruit. Cardiovascular: Rate and [...] signature was used to authenticate this note. Jeferson Worrell MD 11/18/2023 8:31 AM documented in this encounter [facility] 11-11-2023 Telephone encount er Note Notified Bhavesh, printed order and is in the patient pickup. [facility] 11-11-2023 Miscellaneous Notes Formattin g of this note might be different from the original. Notified Bhavesh, printed order and is in the patient pickup. Addended by: JEFERSON WORRELL on: 11/11/2023 05:46 AM Modules accepted: Orders Order for lipid panel entered Name of caller: Bhavesh Contact phone number: [phone] Relationship to Patient: patient Provider: Jeferson Worrell MD Practice: [facility] Chief Complaint/Reason for Call: Patient is requesting an order for, lipid panel. Patient stated he would like to product picker, in the office. Patient is requesting a call back ,when order is completed. Please advise. Best time of day caller can be reached: any Patient advised that office/PCP has 24-48 business hours to return their call: Yes documented in this encounter [facility] 11-11-2023 Note Addended by: JEFERSON WORRELL on: 11/11/2023 05:46 AM Modules accepted: Orders [facility] 11-11-2023 Note Addended by: JEFERSON WORRELL on: 11/11/2023 05:46 AM Modules accepted: Orders [facility] 11-11-2023 Telephone encount er Note Order for lipid panel entered [facility] 11-10-2023 Telephone encount er Note Name of caller: Bhavesh Contact phone number: [phone] Relationship to Patient: patient Provider: Jeferson Worrell MD Practice: [facility] Chief Complaint/Reason for Call: Patient is requesting an order for, lipid panel. Patient stated he would like to product picker, in the office. Patient is requesting a call back ,when order is completed. Please advise. Best time of day caller can be reached: any Patient advised that office/PCP has 24-48 business hours to return their call: Yes [facility] 11-10-2023 Miscellaneous Notes Formattin g of this note might be different from the original. Name of caller: Bhavesh Contact phone number: [phone] Relationship to Patient: patient Provider: Jeferson Worrell MD Practice: [facility] Chief Complaint/Reason for Call: Patient is requesting an order for, lipid panel. Patient stated he would like to product picker, in the office. Patient is requesting a call back ,when order is completed. Please advise. Best time of day caller can be reached: any Patient advised that office/PCP has 24-48 business hours to return their call: Yes documented in this encounter [facility] 04-28-2023 Evaluation + Plan note Associated Problem(s): Mixed hyperlipidemia Uncontrolled, continue current medication and very very strict low-fat low-cholesterol low-carb diet. [facility] 04-28-2023 Miscellaneous Notes Associate d Problem(s): Mixed hyperlipidemia Uncontrolled, continue current medication and very very strict low-fat low-cholesterol low-carb diet. Associated Problem(s): Severe obesity (BMI 35.0-39.9) with comorbidity (HCC) Encourage weight loss with diet and exercise Associated Problem(s): Primary hypertension Controlled, continue low-sodium diet Associated Problem(s): EDGAR on CPAP Controlled, continue to wear CPAP at current setting. documented in this encounter [facility] 04-28-2023 Evaluation + Plan note Associated Problem(s): Severe obesity (BMI 35.0-39.9) with comorbidity (HCC) Encourage weight loss with diet and exercise [facility] 04-28-2023 Evaluation + Plan note Associated Problem(s): Primary hypertension Controlled, continue low-sodium diet [facility] 04-28-2023 Evaluation + Plan note Associated Problem(s): EDGAR on CPAP Controlled, continue to wear CPAP at current setting. [facility] 04-28-2023 History of Presen t illness Narrative Patient verified by last name and date of . Images from the original note were not included. 04/28/2023 Bhavehs Galindo (: 1970) is a 53 y.o. male , Established patient, here for evaluation of the following chief complaint(s): Hyperlipidemia, Hypertension, Sleep Apnea, Medication Check, Health Maintenance (Pt refused- hep b vaccine, covid vaccine, shingles vaccine, tdap vaccine, flu vaccine/Mmr vaccine- done as a child), and Blood Work (Had lab drawn 04/24/23 at [facility]) ASSESSMENT/PLAN: 1. Primary hypertension Assessment & Plan: Controlled, continue low-sodium diet 2. Mixed hyperlipidemia Assessment & Plan: Uncontrolled, continue current medication and very very strict low-fat low-cholesterol low-carb diet. 3. Severe obesity (BMI 35.0-39.9) with comorbidity (HCC) Assessment & Plan: Encourage weight loss with diet and exercise 4. EDGAR on CPAP Assessment & Plan: Controlled, continue to wear CPAP at current setting. Follow up in about 6 months (around 10/27/2023) for annual. SUBJECTIVE/OBJECTIVE: EMIL Aguilar comes in today for 6-month follow-up on his multiple health issues which includes hypertension which looks excellent today and he brings in blood pressure numbers from home which are good, mixed hyperlipidemia which is uncontrolled his triglycerides are excellent but now his LDL has increased. His obesity and his EDGAR and he says he does wear his CPAP every night for 6 to 7 hours and continues to feel like it is working well. Review of Systems Constitutional: Negative for activity [...] mood. The patient is not nervous/anxious. Vitals: 04/28/23 0658 BP: 134/78 Pulse: 75 SpO2: 96% Weight: 227 lb (103 kg) Height: 5' 6.1 (1.679 m) Physical Exam Vitals and nursing note reviewed. Constitutional: General: He is not in acute distress. Appearance: Normal appearance. HENT: Right Ear: Tympanic membrane, ear canal and external ear normal. Left Ear: Tympanic membrane, ear canal and external ear normal. Mouth/Throat: Mouth: Mucous membranes are moist. Pharynx: Oropharynx is clear. Eyes: Extraocular Movements: Extraocular movements intact. Conjunctiva/sclera: Conjunctivae normal. Pupils: Pupils are equal, round, and reactive to light. Neck: Thyroid: No thyromegaly. Vascular: No carotid bruit. Cardiovascular: Rate and [...] signature was used to authenticate this note. Jeferson Worrell MD 04/28/2023 7:17 AM documented in this encounter [facility] 04-21-2023 Telephone encount er Note Notified. [facility] 04-21-2023 Miscellaneous Notes Formattin g of this note might be different from the original. Notified. His cholesterol does need rechecked his triglycerides continue to be high, he can have that done prior to his visit if he would like. Order entered Name of caller: Bhavesh Contact phone number: [phone] Relationship to Patient: patient Provider: Dr Worrell Practice: [facility] Chief Complaint/Reason for Call: Patient states [...] their call: Yes documented in this encounter [facility] 04-21-2023 Telephone encount er Note His cholesterol does need rechecked his triglycerides continue to be high, he can have that done prior to his visit if he would like. Order entered [facility] 04-21-2023 Telephone encount er Note Name of caller: Bhavesh Contact phone number: [phone] Relationship to Patient: patient Provider: Dr Worrell Practice: [facility] Chief Complaint/Reason for Call: Patient states [...] business hours to return their call: Yes [facility] 10-30-2022 Evaluation + Plan note Associated Problem(s): Mixed hyperlipidemia Cholesterol is controlled, triglycerides are elevated discussed reducing his omega-3 fish oil to at least 4 g a day continue fenofibrate 145 mg daily [facility] 10-30-2022 Miscellaneous Notes Associate d Problem(s): Mixed [...] settings documented in this encounter [facility] 10-30-2022 Evaluation + Plan note Associated Problem(s): Severe obesity (BMI 35.0-39.9) with comorbidity (HCC) Weight is increased, discussed diet and exercise for weight loss. [facility] 10-30-2022 Evaluation + Plan note Associated Problem(s): Primary hypertension Blood pressure was initially elevated, recheck was still high we will have him follow-up in 1 week for blood pressure check may need to start medications. [facility] 10-30-2022 Evaluation + Plan note Associated Problem(s): EDGAR on CPAP Stable, continue CPAP at current settings [facility] 10-30-2022 History of Presen t illness Narrative [...] screening-agreed but already had labs done at [facility], had Dr. Worrell put in orders ahead of visit/COVID vaccine-none/TDAP-declines/Sammie ngrix-declines/Hep B vaccine-declines) ASSESSMENT/PLAN: 1. Annual physical exam [...] signature was used to authenticate this note. Jeferson Worrell MD 10/30/2022 11:31 AM documented in this encounter [facility] 06-24-2022 Telephone encount er Note Patient requested a 90 day supply with enough refills to get him to his appt on 10/30/22. Please advise Medication name: fenofibrate (Tricor) Medication dosage: 145 MG tablet Monthly quantity needed: 90 How many day supply requestin days Medication route: oral (PO) Medication administration time(s): daily If taking medication PRN, reason for taking medication: N/A If this is a controlled substance do you receive this or any other controlled medication from any other doctor or facility: N/A Ordering provider: MD Lizandro Date of last office visit: 05/08/22 Date of next office visit: 10/30/22 Date of last refill: (see medication tab): 03/19/22 Updated/Validated preferred pharmacy: Yes Patient instructed to contact the pharmacy prior to picking up the medication: Yes [facility] 06-24-2022 Miscellaneous Notes Formattin g of this note might be different from the original. Patient requested a 90 day supply with enough refills to get him to his appt on 10/30/22. Please advise Medication name: fenofibrate (Tricor) Medication dosage: 145 MG tablet Monthly quantity needed: 90 How many day supply requestin days Medication route: oral (PO) Medication administration time(s): daily If taking medication PRN, reason for taking medication: N/A If this is a controlled substance do you receive this or any other controlled medication from any other doctor or facility: N/A Ordering provider: MD Lizandro Date of last office visit: 05/08/22 Date of next office visit: 10/30/22 Date of last refill: (see medication tab): 03/19/22 Updated/Validated preferred pharmacy: Yes Patient instructed to contact the pharmacy prior to picking up the medication: Yes documented in this encounter [facility] 05-08-2022 Evaluation + Plan note Associated Problem(s): Mixed hyperlipidemia Controlled, continue fenofibrate 145 mg [facility] 05-08-2022 Evaluation + Plan note Associated Problem(s): Severe obesity (BMI 35.0-39.9) with comorbidity (CMS/HCC) (HCC) Encourage weight loss with diet and exercise [facility] 05-08-2022 Evaluation + Plan note Associated Problem(s): Primary hypertension Controlled, currently on no medications. [facility] 05-08-2022 Evaluation + Plan note Associated Problem(s): EDGAR on CPAP Stable, he uses his CPAP every night for 6 to 7 hours and wakes up feeling like he has slept well. [facility] [employer] 05-08-2022 Miscellaneous Notes Associate d Problem(s): Mixed hyperlipidemia Controlled, continue fenofibrate 145 mg Associated Problem(s): Severe obesity (BMI 35.0-39.9) with comorbidity (CMS/HCC) (HCC) Encourage weight loss with diet and exercise Associated Problem(s): Primary hypertension Controlled, currently on no medications. Associated Problem(s): EDGAR on CPAP Stable, he uses his CPAP every night for 6 to 7 hours and wakes up feeling like he has slept well. documented in this encounter [facility] 05-08-2022 History of Presen t illness Narrative Images from the original note were not included. 05/08/2022 Bhavesh Galindo (: 1970) is a 52 y.o. male , Established patient, here for evaluation of the following chief complaint(s): Hyperlipidemia, Hypertension, Medication Check, and Health Maintenance (Flu vaccine-refuse/) ASSESSMENT/PLAN: 1. Primary hypertension Assessment & Plan: Controlled, currently on no medications. 2. Mixed hyperlipidemia Assessment & Plan: Controlled, continue fenofibrate 145 mg 3. Severe obesity (BMI 35.0-39.9) with comorbidity (CMS/HCC) (HCC) Assessment & Plan: Encourage weight loss with diet and exercise 4. EDGAR on CPAP Assessment & Plan: Stable, he uses his CPAP every night for 6 to 7 hours and wakes up feeling like he has slept well. Follow up in about 6 months (around 11/05/2022). SUBJECTIVE/OBJECTIVE: EMIL Aguilar comes in today for 6-month follow-up on his hypertension, hyperlipidemia obesity and his EDGAR.. He did have blood work done so we reviewed that and his chemistries were normal and his cholesterol is excellent. Review of Systems Constitutional: Negative for activity [...] mood. The patient is not nervous/anxious. Vitals: 05/08/22 0822 BP: 123/68 Pulse: 56 Weight: 220 lb (99.8 kg) Height: 5' 6.1 (1.679 m) Physical [...] signature was used to authenticate this note. Jeferson Worrell MD 05/08/2022 9:26 AM documented in this encounter [facility] Evaluation note No assessment inform ation available [facility] Work Phone: Evaluation note Diagnosis Annual physical exam- Primary Routine general medical examination at a health care facility EDGAR on CPAP Primary hypertension Unspecified essential hypertension Severe obesity (BMI 35.0-39.9) with comorbidity (HCC) Mixed hyperlipidemia [facility] Diagnosis Mixed hyperlipidemia- Primary [facility] Diagnosis Primary hypertension- Primary Unspecified essential hypertension Mixed hyperlipidemia Severe obesity (BMI 35.0-39.9) with comorbidity (HCC) EDGAR on CPAP [facility] Mixed hyperlipidemia- Primary [facility] Diagnosis Annual physical exam- Primary Routine general medical examination at a health care facility Primary hypertension Unspecified essential hypertension EDGAR on CPAP Mixed hyperlipidemia Severe obesity (BMI 35.0-39.9) with comorbidity (HCC) Screening for diabetes mellitus Screening for prostate cancer Special screening for malignant neoplasm of prostate [facility] Primary hypertension- Primary Unspecified essential hypertension Mixed hyperlipidemia Severe obesity (BMI 35.0-39.9) with comorbidity (CMS/HCC) (HCC) DEGAR on CPAP [facility] Primary hypertension- Primary Unspecified essential hypertension Mixed hyperlipidemia Severe obesity (BMI 35.0-39.9) with comorbidity (HCC) EDGAR on CPAP Annual physical exam- Primary Routine general medical examination at a health care facility EDGAR on CPAP Primary hypertension Unspecified essential hypertension Severe obesity (BMI 35.0-39.9) with comorbidity (HCC) Mixed hyperlipidemia Primary hypertension- Primary Unspecified essential hypertension Mixed hyperlipidemia Severe obesity (BMI 35.0-39.9) with comorbidity (HCC) EDGAR on CPAP Annual physical exam- Primary Routine general medical examination at a health care facility Primary hypertension Unspecified essential hypertension EDGAR on CPAP Mixed hyperlipidemia Severe obesity (BMI 35.0-39.9) with comorbidity (HCC) Screening for diabetes mellitus Screening for prostate cancer Special screening for malignant neoplasm of prostate Mixed hyperlipidemia- Primary Primary hypertension Unspecified essential hypertension Severe obesity (BMI 35.0-39.9) with comorbidity (HCC) EDGAR on CPAP Influenza vaccine refused documented in this encounter [facility] Chief Complaint and Reason for Visit Chief Complaint LIPID Summary Purpose Family History No Family History Records FoundNo Family History Records Found Advance Directives No Advanced Directives Records FoundNo Advanced Directives Records Found Additional Source Comments Goals (unrecognized section and content) Goals may be documented in a n alternate sectionGoals may be documented in an alternate sectionGoals may be documented in an alternate sectionGoals may be documented in an alternate section Care Teams (unrecognized sec tion and content) Team Status: Active Member Role Status Dates Dr. Danielle Muniz MD Family Provider Active Dr. Jeferson Worrell MD Primary Care Provider Active Team Status: Inactive Member Role Status Dates Dr. Jeferson Worrell MD Primary Care Pro vider, Attending Provider, Referring Provider Active Motorcycle Maker Relationship Specialty Start Date End Date Jeferson Worrell MD [address] [place] [id number] PCP - General 10/04/21 Motorcycle Maker Relationship Specialty Start Date End Date Jeferson Worrell MD [address] [place] [id number] PCP - General 10/04/21 Motorcycle Maker Relationship Specialty Start Date End Date Jeferson Worrell MD [address] [place] [id number] PCP - General 10/04/21 Team Status: Inactive Member Role Status Dates Dr. Jeferson Worrell MD Primary Care Provider, Attendi ng Provider Active Motorcycle Maker Relationship Specialty Start Date End [place] [address] PCP - General 10/04/21 Motorcycle Maker Relationship Specialty Start Date [place] [address] PCP - General 10/04/21 Motorcycle Maker Relationship Specialty Start Date End [place] [address] PCP - General 10/04/21 Motorcycle Maker Relationship Specialty Start Date End [place] [address] PCP - General 10/04/21 Motorcycle Maker Relationship Specialty Start Date End [place] [address] PCP - General 10/04/21 Motorcycle Maker Relationship Specialty Start Date End Date [facility] [place] [address] PCP - General 10/04/21 Motorcycle Maker Relationship Specialty Start Date End Date [facility]eferson [facility] [place] [address] PCP - General 10/04/21 Motorcycle Maker Relationship Specialty Start Date End [place] [address] PCP - General 10/04/21 Motorcycle Maker Relationship Specialty Start Date End Date Jeferson Worrell MD [address] [place] [address] [place] [address] PCP - General 10/04/21 Motorcycle Maker Relationship Specialty Start Date End Date Jeferson Worrell MD [address] [place] [address] [address] PCP - General 10/04/21 Reason for Visit (unrecogniz ed section and content) Reason Comments Annual Exam Blood Work Health Maintenance DM screening-agreed but already had labs done at [facility], had Dr. Worrell put in orders ahead of visitCOVID [id number]-declinesHep B vaccine-declines Reason Onset Date Comments Request For Order(s) 04/21/2023 Reason Comments Hyperlipidemia Hypertension Sleep Apnea Medication Check Health Maintenance Pt refused- hep b va ccine, covid vaccine, shingles vaccine, tdap vaccine, flu vaccineMmr vaccine- done as a child Blood Work Had lab drawn 4 at [facility] Reason Onset Date Comments Request For Order(s) 11/10/2023 Reason Comments Annual Exam Blood Work Done at [facility] last wee k - pt was called with results Health Maintenance Pt refused- hep b, s hingles, tdap and covid vaccinesMmr vaccine- done as a child Reason Onset Date Comments Discuss Labs 11/21/2023 Release of Information 11/21/2023 Reason Comments Hyperlipidemia Hypertension Medication Check Health Maintenance Flu vaccine-refuse Reason Onset Date Comments Med Refill 06/24/2022 Reason Comments Hyperlipidemia Hypertension Sleep Apnea Medication Check 6 month Health Maintenance Pt refused- pcv 20 a nd flu vaccinesPt has not had any covid vaccines Reason Onset Date Comments Med Refill 06/29/2024 Reason Onset Date Comments Med Refill 11/15/2024 Reason Onset Date Comments Other 11/15/2024 (unrecognized sect ion and content) No Status Records FoundNo Status Records Found INFORMATION SOURCE (unrecogn ized section and content) DATE CREATED AUTHOR 06/12/2024 [facility] DATE CREATED AUTHOR AUTHOR'S SHERIE ROCK 11/16/2024 [facility] FOR RECORDS PERTAINING TO PATIENTS WHO ARE [...] BE BASED ON THE PRIMARY CLINICAL RECORDS. [employer] provides no warranty or guarantee of the accuracy or completeness of information in this document.
[2024-11-18 07:59] LABS: AST(SGOT) 32 U/L (<=37); Alanine Aminotransfer ALT/SGPT 38 U/L (<=46); Albumin, Serum 4.5 g/dL (3.5-5.0); Alkaline Phosphatase 46 U/L (40-129); Anion Gap 12 (5-15); BUN 14 mg/dL (4-19); BUN/Creat Ratio 14.5 RATIO (10-20); Calcium,Total 9.4 mg/dL (7.6-11.0); Carbon Dioxide 22.7 mmol/L (21.0-32.0); Chloride 103 mmol/L (98-108); Cholesterol 155 mg/dL (<=200); Globulin 3.0 g/dL (2.2-4.2); Glucose 95 mg/dL (70-99); Low Density Lipoprotein Calc. 82 mg/dL; Potassium 3.8 mmol/L (3.3-5.1); Triglycerides 194 mg/dL; Very Low Density Lipoprotein 39 mg/dL (5-40); cholesterol:hdl ratio screen 4.47
== END | disposition home or self-care (01) ==
LOC: LAB 06:46
PROVIDERS: PCP Family Medicine; Referring Provider Nurse Practitioner Family; Visit Provider Nurse Practitioner Family
DX: Z12.5 Encounter for screening for malignant neoplasm of prostate (principal); E78.2 Mixed hyperlipidemia; I10 Essential (primary) hypertension
CPT/HCPCS: 36415; 80053; 80061